=== PATIENT | female | born 1965 | race Caucasian/White ===

== ENCOUNTER 2016-09-19 19:01 | Emergency (ER) | payer OTHER ==
[~2016-09-19] VITALS: Ht 170.2 cm; Wt 88.1 kg
[2016-09-19 19:00] VITALS: TEMP 37; Ht 170.2 cm; Wt 88.1 kg
[~2016-09-19 19:01] MED LIST: ALBUAER2 INH; MXRAIN INH; SNG10 PO
[2016-09-19] MEDS ORDERED: ACETAMINOPHEN 500 MG TAB PO STA ×2 (19:20→19:28)
--- NOTE | 2016-09-19 19:57 | DIAGNOSTIC IMAGING REPORT ---
LUMBAR SPINE CT CT DOSE: 1698.42 mGy.cm HISTORY: Pain Low back pain, trauma TECHNIQUE: Multiaxial CT images of the lumbar spine were performed and reformatted in the sagittal and coronal plane without the use of contrast. COMPARISON: None. FINDINGS: No fractures. No subluxation. Paraspinal soft tissues are unremarkable. IMPRESSION: No fractures within the lumbar spine. Electronically signed by: Nazario Solis M.D. 09/19/2016 7:55 PM Dictated Date/Time: 09/19/2016 7:53 PM
--- NOTE | 2016-09-19 20:00 | DIAGNOSTIC IMAGING REPORT ---
CT pelvis PELVIS NO IV/ORAL CONT (CT) CLINICAL HISTORY: Low back pain, trauma TECHNIQUE: Transaxial acquisition with multi axial reformatted images COMPARISON STUDY: None FINDINGS: All major osseous structures are intact. No acute bony abnormality. No abnormal depressed reaction. 6. Iliac joints are symmetric. No acute process the hips. IMPRESSION: No acute process Electronically signed by: Nazario Solis M.D. 09/19/2016 7:57 PM Dictated Date/Time: 09/19/2016 7:55 PM
[2016-09-19] MEDS ORDERED: MONT1TAB3 PO (20:08)
[2016-09-19] MEDS ORDERED: CYCL10TA6 PO (20:08)
[2016-09-19] MEDS ORDERED: PRED10TA PO (20:08)
[2016-09-19] MEDS ORDERED: CLR10 PO (20:08)
[2016-09-19] MEDS ORDERED: WLLSR/150 PO (20:08)
[2016-09-19] MEDS ORDERED: OMEP20TA PO (20:08)
--- NOTE | 2016-09-19 20:34 | DIAGNOSTIC IMAGING REPORT ---
ORBIT RADIOGRAPHS 3 VIEWS HISTORY: Pre-MRI screening pre-MRI screening. COMPARISON: None. FINDINGS: There are no radiopaque foreign bodies identified within the orbits. IMPRESSION: No radiopaque foreign bodies identified within the orbits. Electronically signed by: Nazario Solis M.D. 09/19/2016 8:31 PM Dictated Date/Time: 09/19/2016 8:30 PM
[2016-09-19 21:19] VITALS: BP 121/71; PULSE 60; O2SAT 99
[2016-09-19] MEDS ORDERED: TRAMADOL HCL 50 MG TAB PO STA (21:20)
--- NOTE | 2016-09-19 21:21 | DIAGNOSTIC IMAGING REPORT ---
LUMBAR SPINE MRI HISTORY: MRI lumbar spine Lower extremity weakness, unable to stand TECHNIQUE: Multiplanar multisequence MRI of the lumbar spine was performed without the use of contrast. COMPARISON: None. FINDINGS: For the purpose of the report the L5-S1 disc space will be located on axial image 27 of 30. Mild disc desiccation L5-S1. Signal characteristics of the remainder of the vertebral bodies as well as intervertebral discs are unremarkable. L1-L2: No significant central canal or neural foraminal narrowing. L2-L3: No significant central canal or neural foraminal narrowing. L3-L4: No significant central canal or neural foraminal narrowing. L4-L5: No significant central canal or neural foraminal narrowing. L5-S1: Mild central disc herniation. Minimal impact anterior thecal sac. Neural foramina patent bilaterally. IMPRESSION: 1. Mild central disc herniation L5-S1. 2. No significant impact with thecal sac or associated neural elements. 3. Study is otherwise negative. Electronically signed by: Nazario Solis M.D. 09/19/2016 9:19 PM Dictated Date/Time: 09/19/2016 9:18 PM
[2016-09-19] MEDS ORDERED: TRAM-10 PO (21:57)
--- NOTE | 2016-09-19 22:02 | EMERGENCY ROOM VISIT NOTE ---
History First contact with patient: 19:06 Chief Complaint: BACK PAIN Stated Complaint: BACK PAIN History of Present Illness The patient is a 51 year old female who presents to the Emergency Room via ambulance with complaints of "back pain". The patient states that 2 weeks ago she felt a twinge in the lower spine, which was worsening, and was having difficulty with movement. She states that yesterday she was barely able to walk secondary to her legs feeling weak and extreme pain and lower back. She felt as though her legs could not support her. She denies any trauma at that time. She states that she was then seen by Dr. Ford, her family doctor who prescribed her Flexeril as well as a prednisone taper. She began this medication today. She then called a chiropractor, and was seen around 5:20 PM. She then returned home, and upon entrance into her house her large dog jumped up and pressed both of their positive the center of her low back. She states this caused her to hyperextend her back followed by quick flexion forward. She states that her legs gave out at that point. She notes that the left leg feels weaker than the right. She also has a slight burning sensation left gluteal region. She was unable to support her weight with her legs, and her called 911. She also notes that she was unable to sit because the pain in her legs were giving out. She has had a disc herniation in the past. She states that this was at the L5-S1 level during her previous labor. She states that she is very active, and walks daily several miles. At this time she denies any urinary symptoms, bowel or bladder incontinence, numbness or tingling in the genital region. Review of Systems A complete 10-point Review of Systems was discussed with the patient, with pertinent positives and negatives listed in the History of Present Illness. All remaining Review of Systems questions can be considered negative unless otherwise specified. Past Medical/Surgical History Lumbar disc herniation. Family History No pertinent family history at this time. Social History Smoking Status: Never Smoker Social History: Patient currently employed. Current/Historical Medications Scheduled Bupropion Hcl (Wellbutrin Sr), 150 MG PO BID Loratadine (Claritin), 10 MG PO DAILY Montelukast Sodium (Singulair), 10 MG PO QAM Omeprazole (Omeprazole), 20 MG PO DAILY Prednisone Tab (Prednisone), 10 MG PO UD Scheduled PRN Cyclobenzaprine Hcl (Flexeril), 10 MG PO TID PRN for Muscle Spasm Tramadol (Ultram), 50 MG PO Q6H PRN for Pain Allergies Coded Allergies: Sulfa Antibiotics (Verified Allergy, Intermediate, Skin reddens, 09/19/16) Physical Exam Vital Signs Date Time Temp Pulse Resp B/P Pulse Ox O2 Delivery O2 Flow Rate FiO2 09/19/16 21:19 60 16 121/71 99 Room Air 09/19/16 19:00 37.0 73 18 135/81 99 Room Air Physical Exam VITAL SIGNS - Vital signs and nursing notes were reviewed. GENERAL -51-year-old female appearing her stated age. Communicates well with provider and answers questions appropriately. SKIN - unremarkable HEAD - Normocephalic, Atraumatic. EYES - Without subconjunctival hemorrhage. Palpebral conjunctiva pink and moist with no injection. EARS - No deformities of external structures noted on gross examination bilaterally. NOSE - Midline and without cyanosis. No epistaxis or clear watery discharge noted. MOUTH/OROPHARYNX - Without perioral cyanosis. Tongue midline with equal elevation of palate bilaterally. No blood noted in the oropharynx. No tonsillar hypertrophy, erythema, or exudates noted. No dental fractures noted. NECK -no tenderness to palpation over the cervical spinous processes. No cervical paraspinal muscle tenderness noted. LUNGS - Chest wall symmetric without accessory muscle use, intercostals retractions, or central cyanosis. Normal vesicular breath sounds CTA B/L. No wheezes, rales, or rhonchi appreciated. CARDIAC - RRR with S1/S2. No murmur, rubs, or gallops appreciated. ABDOMEN - Abdominal contour and without pulsations or visible masses. BS normoactive all four quadrants.No tenderness, palpable masses, hepatosplenomegaly, or ascites noted. MUSCULOSKELETAL: There is pinpoint tenderness over the inferior lumbar and superior sacral spinous processes. No tenderness over the cervical or thoracic region. EXTREMITIES - No gross deformities noted of the extremities. No tenderness to palpation of the lower extremities. She is neurovascularly intact in the lower extremity's. There is appreciable decrease in strength in lower extremity upon extension of the legs. NEUROLOGIC - Cranial nerves II through XII grossly intact. Sensory intact to light touch throughout. PSYCH - Pt is very pleasant and interacts well with examiner. Medical Decision & Procedures ER Provider Diagnostic Interpretation: ORBIT RADIOGRAPHS 3 VIEWS HISTORY: Pre-MRI screening pre-MRI screening. COMPARISON: None. FINDINGS: There are no radiopaque foreign bodies identified within the orbits. IMPRESSION: No radiopaque foreign bodies identified within the orbits. Electronically signed by: Nazario Solis M.D. 09/19/2016 8:31 PM Dictated Date/Time: 09/19/2016 8:[address] DOSE: 1698.42 mGy.cm HISTORY: Pain Low back pain, trauma TECHNIQUE: Multiaxial CT images of the lumbar spine were performed and reformatted in the sagittal and coronal plane without the use of contrast. COMPARISON: None. FINDINGS: No fractures. No subluxation. Paraspinal soft tissues are unremarkable. IMPRESSION: No fractures within the lumbar spine. Electronically signed by: Nazario Solis M.D. 09/19/2016 7:55 PM Dictated Date/Time: 09/19/2016 7:53 PM LUMBAR SPINE MRI HISTORY: MRI lumbar spine Lower extremity weakness, unable to stand TECHNIQUE: Multiplanar multisequence MRI of the lumbar spine was performed without the use of contrast. COMPARISON: None. FINDINGS: For the purpose of the report the L5-S1 disc space will be located on axial image 27 of 30. Mild disc desiccation L5-S1. Signal characteristics of the remainder of the vertebral bodies as well as intervertebral discs are unremarkable. L1-L2: No significant central canal or neural foraminal narrowing. L2-L3: No significant central canal or neural foraminal narrowing. L3-L4: No significant central canal or neural foraminal narrowing. L4-L5: No significant central canal or neural foraminal narrowing. L5-S1: Mild central disc herniation. Minimal impact anterior thecal sac. Neural foramina patent bilaterally. IMPRESSION: 1. Mild central disc herniation L5-S1. 2. No significant impact with thecal sac or associated neural elements. 3. Study is otherwise negative. Electronically signed by: Nazario Solis M.D. 09/19/2016 9:19 PM Dictated Date/Time: 09/19/2016 9:[address] pelvis PELVIS NO IV/ORAL CONT (CT) CLINICAL HISTORY: Low back pain, trauma TECHNIQUE: Transaxial acquisition with multi axial reformatted images COMPARISON STUDY: None FINDINGS: All major osseous structures are intact. No acute bony abnormality. No abnormal depressed reaction. 6. Iliac joints are symmetric. No acute process the hips. IMPRESSION: No acute process Electronically signed by: Nazario Solis M.D. 09/19/2016 7:57 PM Dictated Date/Time: 09/19/2016 7:55 PM Medications Administered Medications (Trade) Dose Ordered Sig/[place] Route Start Time Stop Time Status Last Admin Dose Admin Acetaminophen (Tylenol Tab) 500 mg NOW STAT PO 09/19/16 19:20 09/19/16 19:23 DC 09/19/16 19:20 500 MG Acetaminophen (Tylenol Tab) 500 mg NOW STAT PO 09/19/16 19:28 09/19/16 19:29 DC 09/19/16 19:28 500 MG Tramadol HCl (Ultram Tab) 50 mg NOW STAT PO 09/19/16 21:20 09/19/16 21:21 DC 09/19/16 21:56 50 MG Medical Decision Patient was seen and evaluated as above. After obtaining a thorough history and physical examination patient was offered pain medication, and requested only oral Tylenol. She was given 500 mg, and requested 1 g total therefore another 500 mg was ordered. The patient presents with inability to stand, and lower weakness with pinpoint tenderness over the inferior lumbar and superior sacral region. Her dog also had jumped impressed upon these regions, which is the only evidence of trauma therefore believe that CT imaging is warranted. CT imaging was obtained of the lumbar and pelvis. This was negative for acute process. An MRI was then ordered as the patient was unable to stand secondary to leg weakness. She was unable to flex against my resistance with the legs, raising concern for potential neurologic compromise. MRI was obtained of the lumbar spine and reveals a mild central disc herniation at L5-S1. Results of these imaging studies are as above. Patient was educated upon these findings, I did request additional pain medication. She was given 50 mg of tramadol for her pain. This was after she requested something stronger for pain, and was also offered Toradol. I informed her that tramadol and Wellbutrin/bupropion increase risk of seizure activity especially she is already taking Flexeril. She stated that she has not taken any Wellbutrin for the past 2 days, therefore I agreed to provide her with tramadol. She was also given a home pack and a short-term prescription for this. She was educated about the extreme risk for seizure activity, but declined stronger pain medication. She indicated she would take Tylenol, and it does not appear that she will be taking the tramadol. The patient's case was discussed with Dr. Levin, who recommended the patient be referred to a aircraft engine specialist. The patient was offered admission, but noted that she would like to try and see how she did at home. I do believe this is appropriate, and indicated she may continue the prednisone as well. We again had an extensive discussion regarding the increased seizure risk of the medications. The patient was educated upon worrisome symptoms which to return, had questions prior to discharge, and was discharged home in good condition. The patient was ambulatory prior to discharge. I do not suspect cauda equina syndrome. In the evaluation and treatment of this patient following differential diagnoses were entertained: Disc herniation, cauda equina syndrome, H&P, renal calculi, UTI, pyelonephritis, fracture of the spine, among others. [place] [facility] Monitoring Program Search Results: patient reviewed within database, no issues identified Impression Primary Impression: Lumbar disc herniation Departure Information Dispostion Home / Self-Care Condition GOOD Prescriptions Tramadol (Ultram) 50 Mg Tab 50 MG PO Q6H Y for Pain, #12 TAB Prov: Chente Asencio PA-C 09/19/16 Referrals Nika Ford DO (PCP) Lorenzo Trammell DO Patient Instructions My [facility] Additional Instructions You have been treated in the Emergency Department for Back Pain. You have received pain medicine in the emergency department which impairs your ability to operate a vehicle. It is illegal for you to drive after receiving these medicines. You have been prescribed TRAMADOL to be used for pain control. This is a narcotic medication. You cannot drive or consume alcohol while on this medicine. This medicine should only be used for pain that cannot be controlled with [id number] pain medicines. As we discussed co administration of Wellbutrin, Flexeril and tramadol extremely increases your risk for seizures. It is recommended you do not take these together or in the same time frame. For pain control, you can use the following [id number] medicines (if >12 yo): - Regular strength (325mg/tab) Tylenol (acetaminophen) 2 tabs every 4-6 hours as needed. Do not exceed 12 tablets in a 24 hour period. Avoid taking more than 4 grams (4000 mg) of Tylenol per day. This includes any other sources of acetaminophen you may take on a regular basis. - Regular strength (200 mg/tab) Advil (ibuprofen) 1-2 tabs every 4-6 hours as needed. Do not exceed a dose of 3200 mg per day. If this is an acute injury, ice can be applied to the area of pain for the first 3 days to help decrease pain and inflammation. After the first 3 days, a heating pad can be used over the area for continued soothing relief. You should schedule a follow-up appointment in 2-3 days with your Primary Care Provider for further evaluation and treatment of your back pain. You've the provided number for a aircraft engine specialist to follow-up with. This is Dr. Trammell Return to the Emergency Department if your current symptoms worsen despite treatment course outlined above, or if you develop any of the following symptoms : intractable pain despite aforementioned treatment course, loss of control of your bowel or bladder, numbness or tingling in your groin, or development of a fever. Please return to the emergency department with any new/concerning symptoms. Thank you for your time.
== END 2016-09-19 22:29 | disposition home or self-care (01) ==
LOC: EDBD 19:01 → C.EDD 19:02
DX: M51.26 Other intervertebral disc displacement, lumbar region (principal); Z79.899 Other long term (current) drug therapy

== ENCOUNTER 2016-09-21 02:48 | Emergency (ER) | payer OTHER ==
[~2016-09-21] VITALS: Ht 170.2 cm; Wt 87.0 kg
[~2016-09-21 02:48] MED LIST changes: -ALBUAER2 INH; +CLR10 PO; +CYCL10TA6 PO; +MONT1TAB3 PO; -MXRAIN INH; +OMEP20TA PO; +PRED10TA PO; -SNG10 PO; +TRAM-10 PO; +WLLSR/150 PO
[2016-09-21 02:53] VITALS: TEMP 36.6; Ht 170.2 cm; Wt 87.0 kg
[2016-09-21] MEDS ORDERED: KETOROLAC TROMETHAMINE 30 MG/ML VIAL IV STA (03:24)
[2016-09-21] MEDS ORDERED: METHYLPREDNISOLONE 125 MG VIAL IV STA (03:24)
[2016-09-21] MEDS ORDERED: MoRPHine SULFATE 4 MG/ML 1 ML CARP\\VIAL IV STA (03:24)
[2016-09-21 04:50] VITALS: BP 130/88; PULSE 51; O2SAT 100
[2016-09-21] MEDS ORDERED: OXYCODONE IR HOME PACK PO ONE (05:00)
[2016-09-21] MEDS ORDERED: OXYC1TAB3 PO (05:03)
[2016-09-21] MEDS ORDERED: NAPR-1169 PO (05:06)
--- NOTE | 2016-09-21 05:06 | EMERGENCY ROOM VISIT NOTE ---
History First contact with patient: 03:01 Chief Complaint: BACK PAIN Stated Complaint: BACK PAIN History of Present Illness The patient is a 51 year old female who presents to the Emergency Department via EMS for evaluation of her low back pain. The patient reports that she has had pain for approximately 2 weeks. She had a decrease in her symptoms on Saturday after a visit to the chiropractor. She reports that upon returning home, her dog jumped on her causing her to jar her back resulting in worsening pain. She was seen in the emergency department on Saturday and had an MRI performed. She had been prescribed Flexeril and prednisone by her primary care provider. She was given Ultram in the emergency department as she reports that she does not wish to have anything stronger. 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 This evening, she has had worsening pain with particular focus to the LEFT-sided back with numbness down the LEFT leg. She reports pain with movement. She was unable to stand or move from the bed today which prompted visit to the emergency department. She received 4 mg morphine and 4 mg Zofran in route to the emergency department. She reports persistent pain rating her discomfort an 8/10. She denies any loss of control bowel/bladder saddle anesthesia. She reports no fevers or chills. She denies any new karina trauma, but does report that she was whitney again today by her dog, but had no pain shortly after. Review of Systems A complete 10-point Review of Systems was discussed with the patient, with pertinent positives and negatives listed in the History of Present Illness. All remaining Review of Systems questions can be considered negative unless otherwise specified. Social History Smoking Status: Never Smoker Smokeless Tobacco Use: No Drug Use: none Marital Status: Housing Status: lives with family Occupation Status: employed Current/Historical Medications Scheduled Bupropion Hcl (Wellbutrin Sr), 150 MG PO BID Loratadine (Claritin), 10 MG PO DAILY Montelukast Sodium (Singulair), 10 MG PO QAM Naproxen (Naprosyn), 500 MG PO BID Omeprazole (Omeprazole), 20 MG PO DAILY Prednisone Tab (Prednisone), 10 MG PO UD Scheduled PRN Cyclobenzaprine Hcl (Flexeril), 10 MG PO TID PRN for Muscle Spasm Oxycodone Ir (Roxicodone Ir), 1-2 TAB PO Q4H PRN for Pain Tramadol (Ultram), 50 MG PO Q6H PRN for Pain Allergies Coded Allergies: Sulfa Antibiotics (Verified Allergy, Intermediate, Skin reddens, 09/21/16) Physical Exam Vital Signs Date Time Temp Pulse Resp B/P Pulse Ox O2 Delivery O2 Flow Rate FiO2 09/21/16 04:50 51 15 130/88 100 Room Air 09/21/16 03:54 09/21/16 03:30 81 16 109/74 98 Room Air 09/21/16 02:53 36.6 67 22 166/85 98 Room Air Pain Rating (0-10): 8 Physical Exam VITAL SIGNS - Vital signs and nursing notes were reviewed. GENERAL - 51-year-old female appearing her stated age and in noticeable discomfort throughout the exam. NECK - FROM of the cervical spine. ABDOMEN - Abdominal contour flat without pulsations or visible masses. BS normoactive all four quadrants. No tenderness, palpable masses, hepatosplenomegaly, or ascites noted. MUSCULOSKELETAL - ROM of the lumbar spine region was limited secondary to patient discomfort. Pt was laying on the exam table. Pt made guarded movements when asked to change position. No step-off deformities were palpated down the thoracolumbar spines. Moderate Tenderness to Palpation and active paraspinal spasm experienced at the level of the LEFT sided lumbar paraspinal muscle distribution. No reproducible tenderness to palpation across the iliac spine. NEUROLOGIC - REFLEXES: +3/4 patellar reflexes B/L. SENSORY: Spinothalamic tract was found to be intact with ability to discriminate sharp versus dull sensation at the level of hip joint down do the great toe. No sensory defects of the dorsal column were appreciated utilizing light touch for evaluation. CEREBELLAR: Pt able to perform rapid alternating movements of the feet. EXTREMITIES - Range of Motion - No tremors, ticks, or fasciculations of the lower extremities noticed during inspection. Pt had +4/5 strength appreciated bilaterally in the lower extremities against examiner's resistance. VASCULAR - Capillary refill of the great toe was brisk. No mottling or blanching of the extremities present. +3/5 dorsalis pedis pulses palpated bilaterally. Medical Decision & Procedures Medications Administered Medications (Trade) Dose Ordered Sig/[place] Route Start Time Stop Time Status Last Admin Dose Admin Morphine Sulfate (MoRPHine SULFATE INJ) 4 mg NOW STAT IV 09/21/16 03:24 4/14/17 03:26 DC 09/21/16 03:32 4 MG Ketorolac Tromethamine (Toradol Inj) 30 mg NOW STAT IV 09/21/16 03:24 09/21/16 03:26 DC 09/21/16 03:31 30 MG Methylprednisolone Sodium Succinate (Solu-Medrol IV) 125 mg NOW STAT IV 09/21/16 03:24 09/21/16 03:26 DC 09/21/16 03:31 125 MG Oxycodone HCl (Roxicodone Immediate Rel 5MG Home Pack) 1 homepack UD ONCE PO 09/21/16 05:00 09/21/16 05:01 DC 09/21/16 05:02 1 HOMEPACK Cyclobenzaprine HCl (Flexeril Tab) 10 mg NOW STAT PO 09/21/16 05:27 09/21/16 05:28 DC 09/21/16 05:43 10 MG ED Course Patient was seen and evaluated by myself. Previous emergency department visit note was reviewed. IV lock had been established in route. I had a lengthy conversation with the patient regarding ongoing symptoms and management. She was treated with 4 mg morphine, 30 mg Toradol, 125 mg Solu-Medrol intravenously. Patient was reevaluated and reports feeling somewhat better at this time. She did have pain with attempted movement. She was provided one Flexeril. The patient declines any further pain medication or admission. Patient was discharged home with the intent for close follow-up with her primary care provider for continued management. Medical Decision Given the patient's presentation and exam findings, I did elect to perform the above-mentioned workup. The patient was seen in this facility on Saturday for the same symptoms of back pain. Her symptoms worsened today resulting in a lumbar LEFT-sided radiculopathy which was concerning to the patient. She had an MRI which was essentially unremarkable. She's had no new or recent trauma. I do not feel that imaging studies are necessary at this point. Her pain was adequately controlled the emergency setting and she reports that her numbness and referred pain did subside with IV doses of Toradol, morphine, and Solu- Medrol. The patient has a significant palpable muscular spasm which is likely contributing to her symptoms of sciatica. The patient will be placed on OxyIR in addition to her current regime of Flexeril and prednisone. She'll follow up closely with her primary care provider from today's visit. She will return for any changing or worsening symptoms. Patient discharged home in good condition. In the evaluation and treatment of this patient the following differential diagnoses were considered: Cauda equina syndrome, discitis, HNP, sciatica, epidural abscess, psoas abscess, musculoskeletal strain, lumbar fracture, lumbar dislocation, lumbar subluxation, spondylolisthesis, spondylosis, or compression fracture. Impression Primary Impression: Sciatica Additional Impression: Lumbar paraspinal muscle spasm Departure Information Dispostion Home / Self-Care Condition GOOD Prescriptions Naproxen (Naprosyn) 500 Mg Tab 500 MG PO BID for 10 Days, #20 TAB Prov: Maurice Rose PA-C 09/21/16 Oxycodone Ir (Roxicodone Ir) 5 Mg Tab 1-2 TAB PO Q4H Y for Pain, #16 TAB For Initial Treatment Prov: Maurice Rose PA-C 09/21/16 Referrals Nika Ford DO (PCP) Patient Instructions ED Sciatica, [facility] Additional Instructions You have been treated in the Emergency Department for Back Pain. You have received pain medicine in the emergency department which impairs your ability to operate a vehicle. It is illegal for you to drive after receiving these medicines. You have been prescribed OxyIR to be used for pain control. This is a narcotic medication. You cannot drive or consume alcohol while on this medicine. This medicine should only be used for pain that cannot be controlled with over-the- counter pain medicines. You have been prescribed Naprosyn (naproxen). This is an anti-inflammatory medication used to help decrease your symptoms and improve your pain. Please take this medication as prescribed. It is best to take this medication with food. Please to not take this antibiotic with other NSAIDS including: Ibuprofen , Advil, Motrin, Aspirin, Aleve, Celebrex, etc. For pain control, you can use the following [id number] medicines (if >12 yo): - Regular strength (325mg/tab) Tylenol (acetaminophen) 2 tabs every 4-6 hours as needed. Do not exceed 12 tablets in a 24 hour period. Avoid taking more than 4 grams (4000 mg) of Tylenol per day. This includes any other sources of acetaminophen you may take on a regular basis. - Regular strength (200 mg/tab) Advil (ibuprofen) 1-2 tabs every 4-6 hours as needed. Do not exceed a dose of 3200 mg per day. If this is an acute injury, ice can be applied to the area of pain for the first 3 days to help decrease pain and inflammation. After the first 3 days, a heating pad can be used over the area for continued soothing relief. You should schedule a follow-up appointment in 2-3 days with your Primary Care Provider for further evaluation and treatment of your back pain. Return to the Emergency Department if your current symptoms worsen despite treatment course outlined above, or if you develop any of the following symptoms : intractable pain despite aforementioned treatment course, loss of control of your bowel or bladder, numbness or tingling in your groin, or development of a fever. Problem Qualifiers Primary Impression: Sciatica Laterality: left Qualified Codes: M54.32 - Sciatica, left side
[2016-09-21] MEDS ORDERED: CYCLOBENZAPRINE HCL 10 MG TAB PO STA (05:27)
== END 2016-09-21 05:44 | disposition home or self-care (01) ==
LOC: EDBD 02:48 → C.EDA 02:51
DX: M54.32 Sciatica, left side (principal); M62.830 Muscle spasm of back; Z79.899 Other long term (current) drug therapy

== ENCOUNTER 2016-12-20 11:58 | Emergency (ER) | payer OTHER ==
[~2016-12-20] VITALS: Ht 170.2 cm; Wt 91.0 kg
[~2016-12-20 11:58] MED LIST changes: +OXYC1TAB3 PO
[2016-12-20 12:02] VITALS: TEMP 36.7; Ht 170.2 cm; Wt 91.0 kg
[2016-12-20 13:20] LABS: BASO % 0.5 %; BASO ABS # 0.03 K/uL (0-0.2); COMPLETE YES; EOS % 5.3 %; HEMATOCRIT 35.9 % (37-47); IG% 0.2 %; LYMPH ABS # 1.93 K/uL (1.2-3.4); MEAN CELL VOLUME 89.3 fL (80-100); MEAN CORPUSCULAR HEMOGLOBIN 30.8 pg (25-34); MEAN CORPUSCULAR HGB CONC 34.5 g/dl (32-36); MEAN PLATELET VOLUME 9.6 fL (7.4-10.4); MONO % 8.4 %; NEUT % 53.6 %; PLATELET COUNT 222 K/uL (130-400); RED BLOOD COUNT 4.02 M/uL (4.2-5.4); WHITE BLOOD COUNT 6.04 K/uL (4.8-10.8)
[2016-12-20 13:21] LABS: POINT OF CARE TROPONIN I < 0.030 ng/ml (0-0.045)
--- NOTE | 2016-12-20 13:26 | DIAGNOSTIC IMAGING REPORT ---
CHEST ONE VIEW PORTABLE CLINICAL HISTORY: CHEST PAIN pain COMPARISON STUDY: No previous studies for comparison. FINDINGS: The bones soft tissues and hemidiaphragms are normal. The cardiomediastinal silhouette is normal. The lungs are clear. The pulmonary vasculature is normal. IMPRESSION: Negative chest. Electronically signed by: Nazario Solis M.D. 12/20/2016 1:25 PM Dictated Date/Time: 12/20/2016 1:25 PM
[2016-12-20 13:41] LABS: BUN/CREATININE RATIO 19.8 (10-20); CALCIUM 9.3 mg/dl (8.5-10.1); CREATININE 0.83 mg/dl (0.60-1.20); POTASSIUM 3.3 mmol/L (3.5-5.1)
[2016-12-20 13:46] LABS: CKMB/CK RATIO 1.3 (0-3.0)
[2016-12-20] MEDS ORDERED: GABAPENTIN 100 MG CAP PO STA (13:50)
[2016-12-20] MEDS ORDERED: ASPIRIN 81 MG CHEW PO STA (13:50)
[2016-12-20] MEDS ORDERED: ACETAMINOPHEN 500 MG TAB PO STA (13:50)
[2016-12-20 14:23] VITALS: O2SAT 99
[2016-12-20 16:35] VITALS: BP 143/92; PULSE 100
--- NOTE | 2016-12-20 16:37 | EMERGENCY ROOM VISIT NOTE ---
History Report prepared by Dontae: Dustin Wallace Under the Supervision of: Dr. Lorenzo Madison M.D. First contact with patient: 12:33 Chief Complaint: CHEST PAIN Stated Complaint: CHEST PAIN Nursing Triage Summary: Started in middle of night, was having CP in a dream and then woke up and had crushing CP for about 15 mins. Has had a pressure ever since. SOB. Denies cardiac history. History of Present Illness The patient is a 51 year old female who presents to the Emergency Room with complaints of resolved chest pain that occurred at 0300. The patient reports that she was dreaming that she had chest pain last night. She states that she woke up in the middle of the night and was actually experiencing crushing chest pain that lasted for 15 minutes. The patient states that she still feels a pressure sensation in her chest. 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 The patient reports that at work she was advised to report to the ED by the staff. The patient states that in September, she had an injury due to an accident involving her do. She reports that she went to the ED where she found out she had a herniated disc , which erupted two days later causing a loss of feeling in her legs. She states that her L5S1 was affected and she had no push off for four months, but admits her numbness and weakness has resolved. The patient states she is currently dealing with sciatic S1 distribution. The patient states that she takes Gabapentin 200 mg four times a day, 1 naproxen a day, and Tylenol. She admits to a history of ankle surgery 7 years ago and a Caesarean section. The patient denies experiencing, heartburn, reflux, any recent travels, shortness of breath, pain upon breathing, LOC, headache, fevers, chills, diaphoresis, visual changes, neck pain, breathing difficulties, nausea, vomiting, abdominal pain, back pain, melena, hematochezia, urinary symptoms, numbness, weakness, lymphadenopathy, rash, or other complaints. Source of History: patient Onset: last night Position: chest Quality: pressure Timing: resolved Associated Symptoms: + SOB Review of Systems See HPI for pertinent positives and negatives. A total of ten systems were reviewed and were otherwise negative. Past Medical & Surgical Medical Problems: (1) Asthma Surgical Problems: (1) Previous section (2) S/P repair of ligament of ankle Family History Patient reports no known family medical history. Social History Smoking Status: Never Smoker Drug Use: none Marital Status: Housing Status: lives with family Occupation Status: employed Current/Historical Medications Scheduled Bupropion Hcl (Wellbutrin Sr), 150 MG PO BID Loratadine (Claritin), 10 MG PO DAILY Montelukast Sodium (Singulair), 10 MG PO QAM Omeprazole (Omeprazole), 20 MG PO DAILY Scheduled PRN Cyclobenzaprine Hcl (Flexeril), 10 MG PO TID PRN for Muscle Spasm Tramadol (Ultram), 50 MG PO Q6H PRN for Pain Allergies Coded Allergies: Sulfa Antibiotics (Verified Allergy, Intermediate, Skin reddens, 12/20/16) Physical Exam Vital Signs Date Time Temp Pulse Resp B/P (MAP) Pulse Ox O2 Delivery O2 Flow Rate FiO2 12/20/16 16:35 100 143/92 12/20/16 14:23 71 16 125/80 99 Room Air 12/20/16 13:16 61 12/20/16 12:55 Room Air 12/20/16 12:54 Room Air 12/20/16 12:04 100 Room Air 12/20/16 12:02 36.7 70 16 159/86 100 Room Air Physical Exam GENERAL: Awake, alert, well-appearing, in no distress HENT: Normocephalic, atraumatic. Oropharynx unremarkable. EYES: Normal conjunctiva. Sclera non-icteric. NECK: Supple. No nuchal rigidity. FROM. No JVD. RESPIRATORY: Clear to auscultation. CARDIAC: Regular rate, normal rhythm. Extremities warm and well perfused. Pulses equal. ABDOMEN: Soft, non-distended. No tenderness to palpation. No rebound or guarding. No masses. RECTAL: Deferred. MUSCULOSKELETAL: Chest examination reveals no tenderness. The back is symmetrical on inspection without obvious abnormality. There is no CVA tenderness to palpation. No joint edema. LOWER EXTREMITIES: Calves are equal size bilaterally and non-tender. No edema. No discoloration. NEURO: Normal sensorium. No sensory or motor deficits noted. SKIN: No rash or jaundice noted. Medical Decision & Procedures ER Provider Diagnostic Interpretation: X-ray: Per my interpretation, radiologist review. CHEST ONE VIEW PORTABLE CLINICAL HISTORY: CHEST PAIN pain COMPARISON STUDY: No previous studies for comparison. FINDINGS: The bones soft tissues and hemidiaphragms are normal. The cardiomediastinal silhouette is normal. The lungs are clear. The pulmonary vasculature is normal. IMPRESSION: Negative chest. Electronically signed by: Nazario Solis M.D. 12/20/2016 1:25 PM Dictated Date/Time: 12/20/2016 1:25 PM Laboratory Results 12/20/16 12:50 Red Blood Count 4.02, Mean Corpuscular Volume 89.3, Mean Corpuscular Hemoglobin 30.8, Mean Corpuscular Hemoglobin Concent 34.5, Mean Platelet Volume 9.6, Neutrophils (%) (Auto) 53.6, Lymphocytes (%) (Auto) 32.0, Monocytes (%) (Auto) 8.4, Eosinophils (%) (Auto) 5.3, Basophils (%) (Auto) 0.5, Neutrophils # (Auto) 3.24, Lymphocytes # (Auto) 1.93, Monocytes # (Auto) 0.51, Eosinophils # (Auto) 0.32, Basophils # (Auto) 0.03 12/20/16 12:50 Test 12/20/16 12:50 12/20/16 13:02 White Blood Count 6.04 K/uL (4.8-10.8) Red Blood Count 4.02 M/uL (4.2-5.4) Hemoglobin 12.4 g/dL (12.0-16.0) Hematocrit 35.9 % (37-47) Mean Corpuscular Volume 89.3 fL (80-100) Mean Corpuscular Hemoglobin 30.8 pg (25-34) Mean Corpuscular Hemoglobin Concent 34.5 g/dl (32-36) Platelet Count 222 K/uL (130-400) Mean Platelet Volume 9.6 fL (7.4-10.4) Neutrophils (%) (Auto) 53.6 % Lymphocytes (%) (Auto) 32.0 % Monocytes (%) (Auto) 8.4 % Eosinophils (%) (Auto) 5.3 % Basophils (%) (Auto) 0.5 % Neutrophils # (Auto) 3.24 K/uL (1.4-6.5) Lymphocytes # (Auto) 1.93 K/uL (1.2-3.4) Monocytes # (Auto) 0.51 K/uL (0.11-0.59) Eosinophils # (Auto) 0.32 K/uL (0-0.5) Basophils # (Auto) 0.03 K/uL (0-0.2) RDW Standard Deviation 44.7 fL (36.4-46.3) RDW Coefficient of Variation 13.5 % (11.5-14.5) Immature Granulocyte % (Auto) 0.2 % Immature Granulocyte # (Auto) 0.01 K/uL (0.00-0.02) Anion Gap 6.0 mmol/L (3-11) Est Creatinine Clear Calc Drug Dose 90.8 ml/min Estimated GFR () 93.3 Estimated GFR (Non- 80.5 BUN/Creatinine Ratio 19.8 (10-20) Calcium Level 9.3 mg/dl (8.5-10.1) Total Bilirubin 0.8 mg/dl (0.2-1) Direct Bilirubin 0.1 mg/dl (0-0.2) Aspartate Amino Transf (AST/SGOT) 25 U/L (15-37) Alanine Aminotransferase (ALT/SGPT) 25 U/L (12-78) Alkaline Phosphatase 68 U/L (45-117) Total Creatine Kinase 125 U/L (26-192) Creatine Kinase MB 1.6 ng/ml (0.5-3.6) Creatine Kinase MB Ratio 1.3 (0-3.0) Total Protein 7.5 gm/dl (6.4-8.2) Albumin 4.6 gm/dl (3.4-5.0) Lipase 113 U/L (73-393) Bedside D-Dimer 113 ng/mlFEU (0-450) Bedside Troponin I < 0.030 ng/ml (0-0.045) Laboratory results reviewed by me Medications Administered Medications (Trade) Dose Ordered Sig/[place] Route Start Time Stop Time Status Last Admin Dose Admin Gabapentin (Neurontin Cap) 200 mg NOW STAT PO 12/20/16 13:50 12/20/16 13:52 DC 12/20/16 14:26 200 MG Acetaminophen (Tylenol Tab) 1,000 mg NOW STAT PO 12/20/16 13:50 12/20/16 13:52 DC 12/20/16 14:10 1,000 MG Aspirin (Aspirin Chew) 324 mg NOW STAT PO 12/20/16 13:50 12/20/16 13:52 DC 12/20/16 14:10 324 MG ECG Indication: chest pain Rate (beats per minute): 61 Rhythm: normal sinus Findings: nonspecific-ST abn, no acute ischemic change ED Course 1249: The patient was evaluated in room C04. A complete history and physical exam was performed. 1346: I discussed the patient's case with Dr. Powell, [facility] Cardiology. The patient will undergo a stress test. 1350: Aspiring 324 mg PO, Tylenol Tab 1000 mg PO, Gabapentin 200 mg PO. 1356: I reevaluated the patient and she is resting comfortably. She wanted gabapentin and is feeling fine. Medical Decision Medication Reconciliation: I attest that I have personally reviewed the patient' s current medication list Patient was found to have a slightly elevated blood pressure due to circumstances. I do not believe that the patient requires hypertension monitoring. Triage Nursing notes reviewed. The patient's presentation and history were concerning for chest pain. Etiologies such as cardiac ischemia, aortic dissection, pulmonary embolism, pneumonia, pneumothorax, musculoskeletal, infections, gastrointestinal, as well as others were entertained. The patient was evaluated. Clinical she was doing well. ECG nonspecific ST abnormality but no acute changes. The patient had an unremarkable CBC, chemistry panel, LFTs, lipase, d-dimer, and troponin. A chest x-ray was negative. The patient requested her afternoon Neurontin and this was given. She is also given a dose of Tylenol and aspirin. I did discuss the case with Dr. Powell of cardiology. A stress test was ordered. The stress test was performed. I discussed case with Dr. Powell again. Consults Time Called: 1346 Consulting Physician: Dr. Powell, [facility] Cardiology Returned Call: 1346 I discussed the patient's case with Dr. Powell, [facility] Cardiology. The patient will undergo a stress test. Impression Primary Impression: Substernal precordial chest pain Scribe Attestation The scribe's documentation has been prepared under my direction and personally reviewed by me in its entirety. I confirm that the note above accurately reflects all work, treatment, procedures, and medical decision making performed by me. Departure Information Dispostion Home / Self-Care Referrals Nika Ford DO (PCP) Patient Instructions My [facility] Additional Instructions CHEST PAIN INSTRUCTIONS: Rest and drink plenty of fluids as tolerated. Continue current medications. Avoid strenuous activities and anything that worsens your pain. Resume normal activities once your symptoms resolve. Return to the ER immediately for worsening or persistent chest pain, abdominal pain, vomiting, fevers, chest pains, difficulty breathing, worsening of your condition, or as needed. Follow up with your primary physician in 2-3 days for a recheck of your current condition.
--- NOTE | 2016-12-20 16:50 | EXERCISE STRESS ECHO ---
*NOTICE TO RECEIVING LIBERTARIAN AGENCY This information is strictly Confidential and protected under [place] law. [place] law prohibits you from making any further disclosure of this information unless further disclosure is expressly permitted by the written consent of the person to whom it pertains or is authorized by law. A general authorization for the release of medical or other information is not sufficient for this purpose. Hospital accepts no responsibility if the information is made available to any other person, INCLUDING THE PATIENT. Interpretation Summary * Name: KAM DE LA TORRE Study Date: 12/20/2016 02:55 PM BP: 112/67 mmHg * Patient Location: [facility] HR: 60 * : 1965 (M/d/yyyy) Gender: Female Height: 67 in * Age: 51 yrs Ethnicity: CA Weight: 200 lb * Ordering Physician: Lorenzo Madison * Referring Physician: Self, Referred * Performed By: Mahi Guido RCS * * Reason For Study: CHEST PAIN * BSA: 2.0 m2 * -- Conclusions -- * STRESS STUDY: * Normal submaxiamal exercise stress echocardiogram. * No echocardiographic or ECG evidence of myocardial ischemia having achieved heart rate adequate for diagnostic purposes. * The patient achieved a peak heart rate of 127 bpm, which is equivalent to 76% of the age predected maximum heart rate. * The patient has a history of recently herniated lumber scal disc with resulant gait abnormality and therefore exercise was terminated due to gait instability. * RESTING STUDY: * There is no significant valvular heart disease. Procedure Details * ECHOEX, CPT #[id number] * ECHO COLOR FLOW, CPT #[id number] * ECHO DOPPLER, CPT #[id number] * TST, CPT #[id number] Left Ventricle * The left ventricle is normal in size. * There is no thrombus. * There is normal left ventricular wall thickness. * Left ventricular systolic function is normal. * Ejection Fraction = 55-60%. * The left ventricular wall motion is normal. Right Ventricle * The right ventricle is normal in size and function. Atria * The left atrial size is normal. * Right atrial size is normal. * No ASD detected; PFO is not assessed. Mitral Valve * The mitral valve is normal in structure and function. Tricuspid Valve * The tricuspid valve anatomy is normal. * Significant tricuspid regurgitation is absent. Aortic Valve * The aortic valve is normal in structure and function. Pulmonic Valve * The pulmonary valve is not well seen, but the Doppler examination is normal without significant regurgitation or stenosis. Great Vessels * The aortic root is normal size. Pericardium * There is no pericardial effusion. Stress Parameters * The baseline ECG displays normal sinus rhythm. * The stress ECG response was normal * No arrhythmia were noted with stress. * The stress portion of this study was personally supervised by the undersigned interpreting physician. * Rest heart rate was '60' BPM. * Rest blood pressure was '112/67' * Maximum heart rate achieved was 127 bpm. * Maximum heart rate was 76 % of maximum age-predicted heart rate. * Maximum blood pressure was '155/89' * Total exercise time was '03:42' * Maximum exercise MET level achieved was '5.40' METS * Maximum treadmill speed was '2.50' miles per hour. * Maximum treadmill elevation was '12.00'% grade. Left Ventricular Diastolic Function * The left ventricular diastolic function is normal. MMode 2D Measurements and Calculations IVSd 1.2 cm IVSs 1.6 cm LVIDd 4.8 cm LVIDs 3.1 cm LVPWd 1.1 cm LVPWs 1.2 cm IVS/LVPW 1.1 FS 34.3 % EDV(Teich) 106.3 ml ESV(Teich) 39.0 ml EF(Teich) 63.3 % EDV(cubed) 108.9 ml ESV(cubed) 30.8 ml EF(cubed) 71.7 % % IVS thick 30.3 % % LVPW thick 9.1 % LV mass(C)d 208.7 grams LV mass(C)dI 103.2 grams/m\S\2 LV mass(C)s 149.4 grams LV mass(C)sI 73.9 grams/m\S\2 SV(Teich) 67.3 ml SI(Teich) 33.3 ml/m\S\2 SV(cubed) 78.1 ml SI(cubed) 38.6 ml/m\S\2 Ao root diam 3.2 cm Ao root area 8.0 cm\S\2 LA dimension 3.4 cm LA/Ao 1.1 LVOT diam 2.0 cm LVOT area 3.0 cm\S\2 LVAd ap4 35.4 cm\S\2 LVLd ap4 8.0 cm EDV(MOD-sp4) 126.0 ml EDV(sp4-el) 133.1 ml LVAs ap4 21.1 cm\S\2 LVLs ap4 6.6 cm ESV(MOD-sp4) 57.5 ml ESV(sp4-el) 57.6 ml EF(MOD-sp4) 54.4 % EF(sp4-el) 56.8 % LVAd ap2 29.3 cm\S\2 LVLd ap2 7.4 cm EDV(MOD-sp2) 98.7 ml EDV(sp2-el) 98.0 ml LVAs ap2 18.0 cm\S\2 LVLs ap2 6.1 cm ESV(MOD-sp2) 45.8 ml ESV(sp2-el) 44.8 ml EF(MOD-sp2) 53.6 % EF(sp2-el) 54.3 % LVLd %diff -7.34 % EDV(MOD-bp) 115.6 ml LVLs %diff -6.97 % ESV(MOD-bp) 53.3 ml EF(MOD-bp) 53.9 % SV(MOD-sp4) 68.5 ml SI(MOD-sp4) 33.9 ml/m\S\2 SV(MOD-sp2) 52.9 ml SI(MOD-sp2) 26.2 ml/m\S\2 SV(MOD-bp) 62.3 ml SI(MOD-bp) 30.8 ml/m\S\2 SV(sp4-el) 75.6 ml SI(sp4-el) 37.4 ml/m\S\2 SV(sp2-el) 53.2 ml SI(sp2-el) 26.3 ml/m\S\2 Doppler Measurements and Calculations MV E max lauren 69.0 cm/sec MV A max lauren 50.7 cm/sec MV E/A 1.4 MV P1/2t max lauren 78.9 cm/sec MV P1/2t 85.4 msec MVA(P1/2t) 2.6 cm\S\2 MV dec slope 270.4 cm/sec\S\2 MV dec time 0.25 sec Ao V2 max 128.3 cm/sec Ao max PG 6.6 mmHg Ao max PG (full) 3.3 mmHg RALPH(V,A) 2.1 cm\S\2 RALPH(V,D) 2.1 cm\S\2 LV V1 max PG 3.3 mmHg LV V1 max 90.6 cm/sec PA V2 max 73.0 cm/sec PA max PG 2.1 mmHg PI max lauren 130.7 cm/sec PI max PG 6.8 mmHg PI dec slope 108.1 cm/sec\S\2 PI P1/2t 353.9 msec
== END 2016-12-20 16:50 | disposition home or self-care (01) ==
LOC: C.EDB 11:59 → C.EDC 16:50
DX: R07.2 Precordial pain (principal); J45.909 Unspecified asthma, uncomplicated; Z79.899 Other long term (current) drug therapy; Z98.890 Other specified postprocedural states; Z88.2 Allergy status to sulfonamides

== ENCOUNTER 2019-04-22 07:48 | Inpatient (IN) ==
[2019-04-22] MEDS ORDERED: MoRPHine SULFATE 10 MG/ML CARP/VIAL IV STA (08:12)
[2019-04-22] MEDS ORDERED: DEXAMETHASONE **PF** INJ 10 MG/ML VIAL IV ONE (08:12)
[2019-04-22] MEDS ORDERED: MoRPHine SULFATE 4 MG/ML 1 ML CARP\\VIAL ONE (08:23)
[2019-04-22] MEDS ORDERED: MoRPHine SULFATE 2 MG/ML CARP ONE (08:24)
--- NOTE | 2019-04-22 08:38 | Emergency Department Note ---
History of Present Illness General Chief complaint: Back Injury/Pain Time Seen by Provider: 04/22/19 07:53 History of Present Illness Maximum Pain Intensity: 8 54-year-old female who presents to the emergency department via ambulance for evaluation of lower back pain radiating into the right lower extremity with weakness. 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 The patient does have a history of an L5-S1 intervertebral disc bulge. She has had multiple MRIs in the past. The patient has not been evaluated by a spine surgeon. The patient has been on 2 courses of a prednisone taper over the past few weeks without relief. The patient reports that she usually has weakness in the left lower extremity, but now new weakness in the right. She denies any bladder or bowel incontinence. The patient denies any other recent illnesses or fevers. She denies any abdominal pain, urinary symptoms, diarrhea or constipation. The patient reports that she underwent an MRI at the [facility] on Saturday, but the MRI report has not yet been dictated. The patient was administered fentanyl 100 mcg IVP at home, and an additional fentanyl 50 mcg en route to our facility. The patient currently rates her discomfort a 6 out of 10. The patient reports that she has been on chronic opioid treatment. She reports that her latest injury 2 weeks ago was after attempting to stop her opioids "cold turkey", and fell. The patient has been evaluated in the past by pain management as well. Home Medications Home Medications Medication Instructions Recorded Confirmed Type bupropion HCl [Wellbutrin SR] 150 mg PO DAILY 04/22/19 04/22/19 History conjugated estrogens [Premarin] 0.625 mg VAGINAL 2XWK 04/22/19 04/22/19 History loratadine [Claritin] 10 mg PO DAILY 04/22/19 04/22/19 History montelukast [Singulair] 10 mg PO PM 04/22/19 04/22/19 History prednisone 40 mg PO DIRECTED 04/22/19 04/22/19 History trazodone 100 mg PO HS 04/22/19 04/22/19 History Allergies Allergy/AdvReac Type Severity Reaction Status Date / Time Sulfa (Sulfonamide Allergy Intermediate Skin Verified 12/20/16 17:06 Antibiotics) reddens sulfamethoxazole Allergy Redness of Unverified 04/22/19 08:08 [From Bactrim] Skin trimethoprim [From Bactrim] Allergy Redness of Unverified 04/22/19 08:08 Skin Past Med/Surg History Medical History Asthma Depression with anxiety HLD (hyperlipidemia) Lumbar degenerative disc disease Surgical History History of History of exploratory laparotomy Family History Father Alive and well Mother Alive and well Pre-diabetes Social History Preferred Language: Tongan Communication Ability: Effective Physicians And Surgeons Required: No Beliefs That Will Affect Care: None marital status: Current Living Situation: Spouse and Family current occupational status: employed 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 [employer] Other Information That Helps Us Care for You: No Feels Safe at Home: Yes Safety Concerns: Feels Safe At This Time Smoking Status: Never smoker Do You Dip or Chew Tobacco: No ; Second Hand Exposure: No ; Tobacco Cessation Education Requested by Patient: No Hx Alcohol Use: Yes Alcohol Intake Frequency: Rarely Hx Substance Use: Yes substance use type: marijuana Substance Use Type Other:: medical marijuana Last Used Substance Other:: last night Review of Systems 10 system review was performed and was negative except for pertinent positives and negatives as indicated in history of present illness Physical Exam Vital Signs Vital Signs - 24 hr 04/22/19 07:54 04/22/19 09:53 Temperature 36.6 C Temperature Source Oral Pulse Rate 57 L Pulse Rate [Finger] 58 L Respiratory Rate 18 20 Respiratory Effort / Characteristics Non-Labored Spontaneous Non-Labored Spontaneous Respiratory Depth Normal Respiratory Pattern Regular Blood Pressure 118/58 L Blood Pressure [Right Arm] 96/54 L Blood Pressure Mean 78 Blood Pressure Mean [Right Arm] 68 Blood Pressure Position Lying Pulse Oximetry 98 99 Oxygen Delivery Method Room Air Room Air Sepsis Recent Fever Within 48 Hours No Sepsis New/Unexplained Change in Mental Status No Sepsis Action Taken by Nursing No Action Required CONSTITUTIONAL: Healthy and well nourished. Alert and oriented X 3. Patient appears in moderate discomfort from back pain. HEENT: Normocephalic, atraumatic. Pupils equal, round and reactive. No obvious scleral icterus or conjunctival injection/pallor. NECK: Full active range of motion without discomfort. LYMPHATICS: No cervical chain adenopathy. RESPIRATORY: Clear to auscultation bilaterally with no wheezing, crackles, rhonchi or stridor. CARDIOVASCULAR: Regular rate and rhythm with no murmurs, rubs or gallops. GASTROINTESTINAL: Bowel sounds present in all quadrants. Soft and nontender to palpation. MUSCULOSKELETAL: Examination shows generalized tenderness to palpation through the lower lumbar spine, left worse than right. No obvious paraspinous spasm. Negative straight leg raise bilaterally. Pedal pulses are intact. INTEGUMENTARY: No rash or other significant dermatologic conditions noted. HEMATOLOGIC: No ecchymosis or petechiae. PSYCHIATRIC: Positive affect. NEUROLOGIC: Lower extremities are grossly sensory intact.. Course Course Patient history and physical exam were performed. Nurse's notes were reviewed. Vital signs were reviewed, showing a blood pressure 118/58, and pulse of 57. The patient appeared in moderate discomfort. IV access was established en route to our facility. Labs were ordered and drawn as well. I did have our Career Services Directorcartridge maker the [facility] radiology department, unfortunately there was no answer. The Career Services Director then contacted [facility] in [place], and spoke with a claim representative that would have there radiologist read the MRI. While awaiting progress on this issue, the patient reported returning pain. The nurse also called and reported that they attempted to get her up to walker to the bathroom and she could not do so. The patient was administered Dilaudid 0.5 mg IVP. Labs were reviewed and were grossly normal. After approximately a 2-hour wait with no MRI reports, the patient was still complaining of significant discomfort. She was was administered an additional dose of Dilaudid 0.5 mg IVP. I then further discussed the case with Dr. Vallejo, ED attending physician, who agrees with consulting the [facility] talist service. It is noted that we do not have a spine surgeon administrative receptionist this week. [facility] to the emergency department for further evaluation. Please see her dictation for further treatment and final disposition. Hopefully they will be able to get an MRI report of the lumbar spine without having to reorder further imaging at our facility. Administered Medications Acetaminophen (Tylenol) 650 mg PO Q4H PRN PRN Reason: pain/fever Stop: 05/22/19 12:53 Last Admin: 04/22/19 15:47 Dose: 650 mg Documented by: [id number] Hydromorphone HCl (Dilaudid) 1 mg IV Q3H PRN PRN Reason: Pain Stop: 05/06/19 13:26 Last Admin: 04/22/19 17:16 Dose: 1 mg Documented by: [id number] Admin: 04/22/19 13:54 Dose: 1 mg Documented by: [id number] Ketorolac Tromethamine (Toradol) 30 mg IV Q8H FABOI Stop: 04/24/19 16:59 Last Admin: 04/22/19 17:10 Dose: 30 mg Documented by: [id number] Oxycodone/Acetaminophen (Percocet 5mg/325mg) 1 tab PO Q4H PRN PRN Reason: Pain Stop: 05/06/19 12:53 Last Admin: 04/22/19 13:08 Dose: 1 tab Documented by: [id number] Discontinued Medications Albuterol (Ventolin Hfa) 2 puffs INH NOW STA Stop: 04/22/19 10:58 Last Admin: 04/22/19 11:30 Dose: 2 puffs Documented by: [id number] Dexamethasone Sodium Phosphate (Decadron Pf) 10 mg IV NOW ONE Stop: 04/22/19 08:13 Last Admin: 04/22/19 08:34 Dose: 10 mg Documented by: [id number] Hydromorphone HCl (Dilaudid) 0.5 mg IV NOW STA Stop: 04/22/19 09:05 Last Admin: 04/22/19 09:16 Dose: 0.5 mg Documented by: [id number] Hydromorphone HCl (Dilaudid) 0.5 mg IV NOW STA Stop: 04/22/19 12:02 Last Admin: 04/22/19 12:08 Dose: 0.5 mg Documented by: [id number] Ketorolac Tromethamine (Toradol) 30 mg IV NOW STA Stop: 04/22/19 10:12 Last Admin: 04/22/19 11:10 Dose: 30 mg Documented by: [id number] Morphine Sulfate (Morphine Sulfate) 6 mg IV NOW STA Stop: 04/22/19 08:13 Last Admin: 04/22/19 08:34 Dose: Not Given Documented by: [id number] Morphine Sulfate (Morphine Sulfate) Confirm Administered Dose 4 mg .ROUTE .STK- MED ONE Stop: 04/22/19 08:24 Last Admin: 04/22/19 08:34 Dose: 4 mg Documented by: [id number] Morphine Sulfate (Morphine Sulfate) Confirm Administered Dose 2 mg .ROUTE .STK- MED ONE Stop: 04/22/19 08:25 Last Admin: 04/22/19 08:34 Dose: 2 mg Documented by: [id number] Medical Decision Making Medical Records Attestation: I reviewed the patient's medical records. Home Medications Current Medication List: was personally reviewed by pa Laboratory Data Attestation: I reviewed the patient's lab results. Result diagrams: 04/22/19 08:31 Lab Results 04/22/19 04/22/19 Range/Units 08:31 08:31 WBC 5.18 (4.8-10.8) K/uL RBC 3.87 L (4.2-5.4) M/uL Hgb 11.9 L (12.0-16.0) g/dL Hct 35.3 L (37-47) % MCV 91.2 (80-100) fL MCH 30.7 (25-34) pg MCHC 33.7 (32-36) g/dL RDW Std Deviation 45.1 (36.4-46.3) fL RDW Coeff of Chun 13.6 (11.5-14.5) % Plt Count 165 (130-400) K/uL MPV 9.4 (7.4-10.4) fL Immature Gran % (Auto) 0.2 % Neut % (Auto) 51.5 % Lymph % (Auto) 37.5 % Anderson % (Auto) 8.7 % Eos % (Auto) 1.9 % Baso % (Auto) 0.2 % Immature Gran # (Auto) 0.01 (0.00-0.02) K/uL Neut # (Auto) 2.67 (1.4-6.5) K/uL Lymph # (Auto) 1.94 (1.2-3.4) K/uL Anderson # (Auto) 0.45 (0.11-0.59) K/uL Eos # (Auto) 0.10 (0-0.5) K/uL Baso # (Auto) 0.01 (0-0.2) K/uL ESR 2 (0-21) mm/hr Blood Pressure Blood Pressure Findings: Low blood pressure Blood Pressure Disposition: did not require urgent referral MDM Narrative I am concerned that the patient has a worsening disc bulge or possible herniation from her recent fall. The patient did undergo an MRI study on Saturday, but her MRI report has yet to be dictated by [facility] radiology. Hopefully the hospitalist service will be able to get a report without having to repeat her MRI at our facility. The patient currently denies any bladder/bowel incontinence, saddle anesthesias or footdrop to warrant emergent repeat MRI for possible cauda equina syndrome. Patient also denies any other recent illnesses to suggest infection. Impression & Plan Intractable neuropathic pain of lumbosacral origin Discharge Plan Visit Data *Final* Discharge Date/Time: 04/22/19 12:30 Chief Complaint: Back Injury/Pain ED Provider: Ronel Vallejo ED Midlevel Provider: Cruz Jerez Discharge Problem: Intractable neuropathic pain of lumbosacral origin Patient Disposition: Admitted As Inpatient Discharge Instructions Interventions: ED Discharge Assessment Last Done: 04/22/19 12:30
[2019-04-22 08:43] LABS: Basophils # (auto) 0.01 K/uL (0-0.2); Basophils % (auto) 0.2 %; Eosinophils % (auto) 1.9 %; Hematocrit (blood only) 35.3 % (37-47); Hemoglobin 11.9 g/dL (12.0-16.0); Immature Granulocytes # (auto) 0.01 K/uL (0.00-0.02); Immature Granulocytes % (auto) 0.2 %; Lymphocytes # (auto) 1.94 K/uL (1.2-3.4); Lymphocytes % (auto) 37.5 %; Mean Corpuscular Hemoglobin 30.7 pg (25-34); Mean Corpuscular Hgb Conc 33.7 g/dL (32-36); Mean Corpuscular Volume 91.2 fL (80-100); Mean Platelet Volume 9.4 fL (7.4-10.4); Monocytes # (auto) 0.45 K/uL (0.11-0.59); Monocytes % (auto) 8.7 %; Neutrophils # (auto) 2.67 K/uL (1.4-6.5); Neutrophils % (auto) 51.5 %; Platelet Count 165 K/uL (130-400); RDW Coefficient of Variation 13.6 % (11.5-14.5); RDW Standard Deviation 45.1 fL (36.4-46.3); Red Blood Count 3.87 M/uL (4.2-5.4); White Blood Count 5.18 K/uL (4.8-10.8)
[2019-04-22] MEDS ORDERED: HYDROmorphone INJ 0.5 MG/0.5 ML SYR IV STA ×2 (09:04→12:01)
[2019-04-22] MEDS ORDERED: KETOROLAC 30 MG/ML VIAL IV STA (10:11)
[2019-04-22] MEDS ORDERED: ALBUTEROL HFA 8 GM INHALER INH STA (10:57)
--- NOTE | 2019-04-22 11:38 | History & Physical Report ---
Date of Service April 22, 2019 Assessment & Plan (1) Lumbar back pain with radiculopathy affecting left lower extremity: (2) Weakness of left lower extremity: This is a 54-year-old female who has significant past medical history of mild intermittent asthma, anxiety,HLD, L5-S1 intervertebral disc disease who presents to [facility] ED secondary to intractable left lower back pain with radiation to left leg x2 weeks. MRI Lumbar Spine 04/18:interval progression of L5-S1 central/left subarticular disc extrusion, which effaces the left lateral recess and impinges the transversing left S1 nerve root In ED patient had CBC and ESR which was unrevealing. She had IV morphine 6 mg, 150 mcg of fentanyl, 10 mg dexamethasone, 0.5 mg Dilaudid and 30 mg of IV ketorolac. At rest her pain is approximately 5/10 and still with inability to walk secondary to pain. admit to med/surg Ortho Spine Dr. Valentin consulted - spoke with Dr. Valentin who agrees to see and evaluate patient - appreciate his input Conservative tx for now with Pain control - oxycodone/APAP 5 mg q4hr moderate pain, Morphine 4mg q4hr Severe Pain Continue Toradol 30mg IV q8hr for anti inflammatory relief Alternate heat/ice per comfort PT/OT consulted (3) Asthma: no acute exacerbation continue prn albuterol (4) Depression with anxiety: continue with trazodone and wellbutrin (5) DVT prophylaxis: SCD/TEDS for now evaluate daily for need for chemical prophylaxis Disposition: admit to med/Surg Follow up: PCP Dr. Ford upon discharge Patient was seen and examined in collaboration with Dr. Valero, please see addendum Starting 04/23/19 pt will be under the care of Dr. Mariee History of Present Illness Chief Complaint: Intractable left low back and L leg pain x 2 weeks. Primary Care Provider: Nika Ford, DO This is a 54-year-old female who has significant past medical history of mild intermittent asthma, anxiety,HLD, L5-S1 intervertebral disc disease who presents to [facility] ED secondary to intractable left lower back pain with radiation to left leg x2 weeks. In 2017 patient had an initial event after fall over dog which caused significant left leg and left low back pain for approximately 3 months. Patient states that secondary to L5-S1 disc effacement. It was treated conservatively with narcotic and physical therapy. She has residual left-sided weakness. She states after participating in therapy she feels she got her left leg back to 80% strength. She has been doing well until approximately 2 weeks ago when she bent over and went to stand back up she developed excruciating left-sided low back pain that radiated down left leg. Over the past 2 weeks pain has waxed and waned. She feels she has increased weakness to the left lower extremity. Denies numbness and tingling to left lower extremity or any right lower extremely symptoms. Over the past 3 to 4 days she has had significant worsening of pain and progression of weakness. She woke up at 4 AM this morning unable to get out of bed in excruciating pain; therefore, EMS was called. She denies any loss of bowel or bladder. She denies fever, chills, sweats, lightheadedness, dizziness, chest pain, shortness of breath, nausea, vomiting, abdominal pain. She has been taking [id number] Tylenol without significant relief as well as medical marijuana. She states back in 2016 she stopped narcotics cold turkey because it made her not feel well and she prefers to not take medications. Patient was seen and examined in outpatient setting 04/17/[address] Ford. She underwent MRI of the lumbar spine on 04/18 which revealed interval progression of L5-S1 central/left subarticular disc extrusion, which effaces the left lateral recess and impinges the transversing left S1 nerve root. She was to participate in PT today. In ED patient had CBC and ESR which was unrevealing. She had IV morphine 6 mg, 150 mcg of fentanyl, 10 mg dexamethasone, 0.5 mg Dilaudid and 30 mg of IV ketorolac. At rest her pain is approximately 5/10 and still with inability to walk secondary to pain. Allergies Allergy/AdvReac Type Severity Reaction Status Date / Time Sulfa (Sulfonamide Allergy Intermediate Skin Verified 12/20/16 17:06 Antibiotics) reddens sulfamethoxazole Allergy Redness of Unverified 04/22/19 08:08 [From Bactrim] Skin trimethoprim [From Bactrim] Allergy Redness of Unverified 04/22/19 08:08 Skin Home Medications Home Medications Medication Instructions Recorded Confirmed Type bupropion HCl [Wellbutrin SR] 150 mg PO DAILY 04/22/19 04/22/19 History conjugated estrogens [Premarin] 0.625 mg VAGINAL 2XWK 04/22/19 04/22/19 History loratadine [Claritin] 10 mg PO DAILY 04/22/19 04/22/19 History montelukast [Singulair] 10 mg PO PM 04/22/19 04/22/19 History prednisone 40 mg PO DIRECTED 04/22/19 04/22/19 History trazodone 100 mg PO HS 04/22/19 04/22/19 History Past Med/Surg History Medical History (Updated 04/22/19 @ 11:44 by Ana Villalta PA-C) Asthma Depression with anxiety HLD (hyperlipidemia) Lumbar degenerative disc disease Surgical History History of History of exploratory laparotomy Family History (Updated 04/22/19 @ 11:34 by Ana Villalta PA-C) Father Alive and well Mother Alive and well Pre-diabetes Social History (Updated 04/22/19 @ 11:34 by Ana Villalta PA-C) Preferred Language: Romanian Communication Ability: Effective Police Surgeon Required: No Beliefs That Will Affect Care: None marital status: Current Living Situation: Spouse and Family current occupational status: employed 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 [employer] Other Information That Helps Us Care for You: No Feels Safe at Home: Yes Safety Concerns: Feels Safe At This Time Smoking Status: Never smoker Do You Dip or Chew Tobacco: No ; Second Hand Exposure: No ; Tobacco Cessation Education Requested by Patient: No Hx Alcohol Use: Yes Alcohol Intake Frequency: Rarely Hx Substance Use: Yes substance use type: marijuana Substance Use Type Other:: medical marijuana Last Used Substance Other:: last night Review of Systems Review of Systems: All systems reviewed & are unremarkable except as noted in HPI & below Physical Exam Physical Exam: Constitutional: WD/WN, vitals as above, lying in L lateral decubitus position, +Distress due to pain, tearful, pleasant, conversing easily Head: Normocephalic, Atraumatic Eyes: PERRL, conjunctivae normal, anicteric sclerae ENMT: external ear and nose normal, oropharynx normal Neck: trachea midline, no thyromegaly normal visual inspection Respiratory: normal respiratory effort, lungs clear to auscultation, no wheeze, rales, rhonchi. Normal insp/exp effort, no accessory muscle use Cardiovascular: RRR, no murmur, no edema Vessels: no JVD or carotid bruit Chest: normal inspection of chest Abdomen: normal bowel sounds, soft, nontender, no hepatosplenomegaly Musculoskeletal: no cyanosis or clubbing, unable to assess strength/ROM to LLE due to significant pain - refer to Dr. Valero addendum Skin: no rashes, warm and dry normal turgor Neurologic: PERRL, EOMI, accommodation nl, no face palsy, no dysarthria CN's II-XI intact bilaterally and moves all extremities Psychiatric: A+Ox3, euthymic affect Lymphatic: no cervical or axillary lymphadenopathy : deferred Results & Data Vital Signs (Past 12 Hours) Vital Signs Temp Pulse Pulse Resp BP BP Pulse Ox 04/22/19 09:53 58 L 20 96/54 L 99 04/22/19 07:54 36.6 C 57 L 18 118/58 L 98 Laboratory Results Short CBC 04/22/19 Range/Units 08:31 WBC 5.18 (4.8-10.8) K/uL Hgb 11.9 L (12.0-16.0) g/dL Hct 35.3 L (37-47) % Plt Count 165 (130-400) K/uL Diagnostic Findings MRI Lumbar Spine 04/18/19: FINDINGS There are 5 [id number], lumbar-type vertebrae. Mild straightening of the normal lumbar lordosis. Lumbar vertebral bodies are maintained in height and signal intensity. Disc desiccation L1-L2 and L5-S1. Degenerative endplate changes with associated endplate edema at L5-S1. The conus medullaris terminates normally at L1. T12-L1: No significant spinal canal stenosis or neural foraminal narrowing. L1-L2: Mild diffuse disc bulge and facet arthropathy without significant spinal canal stenosis or neural foraminal narrowing. L2-L3: Mild diffuse disc bulge and facet arthropathy without significant spinal canal stenosis or neural foraminal narrowing L3-L4: Mild diffuse disc bulge and facet arthropathy without significant spinal canal stenosis or neural foraminal narrowing L4-L5: Mild diffuse disc bulge and facet arthropathy without significant spinal canal stenosis or neural foraminal narrowing L5-S1: Diffuse disc bulge with a superimposed central/left subarticular disc extrusion effaces the left lateral recess and impinges the traversing left S1 nerve root. Facet arthropathy contributes to mild spinal canal stenosis. No significant neural foraminal narrowing. Visualized prevertebral and paraspinal soft tissues are unremarkable. IMPRESSION IMPRESSION 1. Interval progression of L5-S1 central/left subarticular disc extrusion, which effaces the left lateral recess and impinges the traversing left S1 nerve root. Medications Administered Discontinued Medications Albuterol (Ventolin Hfa) 2 puffs INH NOW STA Stop: 04/22/19 10:58 Last Admin: 04/22/19 11:30 Dose: 2 puffs Documented by: [id number] Dexamethasone Sodium Phosphate (Decadron Pf) 10 mg IV NOW ONE Stop: 04/22/19 08:13 Last Admin: 04/22/19 08:34 Dose: 10 mg Documented by: [id number] Hydromorphone HCl (Dilaudid) 0.5 mg IV NOW STA Stop: 04/22/19 09:05 Last Admin: 04/22/19 09:16 Dose: 0.5 mg Documented by: [id number] Ketorolac Tromethamine (Toradol) 30 mg IV NOW STA Stop: 04/22/19 10:12 Last Admin: 04/22/19 11:10 Dose: 30 mg Documented by: [id number] Morphine Sulfate (Morphine Sulfate) 6 mg IV NOW STA Stop: 04/22/19 08:13 Last Admin: 04/22/19 08:34 Dose: Not Given Documented by: [id number] Morphine Sulfate (Morphine Sulfate) Confirm Administered Dose 4 mg .ROUTE .STK- MED ONE Stop: 04/22/19 08:24 Last Admin: 04/22/19 08:34 Dose: 4 mg Documented by: [id number] Morphine Sulfate (Morphine Sulfate) Confirm Administered Dose 2 mg .ROUTE .STK- MED ONE Stop: 04/22/19 08:25 Last Admin: 04/22/19 08:34 Dose: 2 mg Documented by: [id number] Code Status & VTE Plan Code Status Full Code VTE Prophylaxis Plan VTE Prophylaxis will be ordered: Yes Supervising Physician Co-Signing Physician Notes Attending addendum: The patient was seen and examined in medical floor She has been complaining of severe back pain with radiation to the left lower extremity which is worse since this morning She has had issues with her back and leg pain for a while and she finished 2 courses of prednisone as an outpatient without any improvement Recent MRI did show protrusion of the disc involving L5 and S1 distribution She denies any problem with urine and her bowel habit On examination Acute distress secondary to pain and cannot lie flat on the back Hemodynamically stable Chest-clear to auscultate bilaterally Heart-S1-S2 regular Abdomen-benign Extremities-no edema ROOM ATTENDANTS-alert, awake and oriented x3 Sensation is intact the left lower extremity Left lower extremity power is diminished and worse with the plantar dorsiflexion Admission labs and imaging studies reviewed Has HNP with significant compression of the S1 distribution on the left Spine surgery has been consulted Agree with assessment and plan as outlined above by Ana Villalta PA-C, Dr Shari Valero
[2019-04-22 12:32] LABS: Appearance Urine Clear (Clear); Bacteria Urine Automated 1+ (Negative); Bilirubin Urine Negative (Negative); Blood Urine Negative (Negative); Cast Urine Automated 0 /lpf (0-5); Color Urine Yellow; Epithelial Cell Urine Auto >30 /lpf (0-5); Glucose Urine UA Negative (Negative); Ketones Urine Negative (Negative); Leukocyte Esterase Urine 1+ (Negative); Nitrite Urine Negative (Negative); Protein Urine Negative (Negative); RBC Urine Automated 0-4 /hpf (0-4); Specific Gravity Urine 1.013 (1.000-1.030); Urobilinogen Urine Negative (Negative); pH Urine 6.5 (4.5-7.5)
[2019-04-22] MEDS ORDERED: MoRPHine SULFATE 4 MG/ML 1 ML CARP\\VIAL IV PRN (12:54)
[2019-04-22] MEDS ORDERED: POLYETHYLENE (MIRALAX) 17 GM PACK PO PRN (12:54)
[2019-04-22] MEDS ORDERED: ALUMINUM/MAGNESIUM SUSP 30 ML UDC PO PRN (12:54)
[2019-04-22] MEDS ORDERED: ONDANSETRON INJ 2 MG/ML 2 ML VIAL IV PRN (12:54)
[2019-04-22] MEDS ORDERED: ALBUTEROL HFA 8 GM INHALER INH PRN (12:54)
[2019-04-22] MEDS ORDERED: ZOLPIDEM TARTRATE 5 MG TAB PO PRN (12:54)
[2019-04-22] MEDS: OXYCODONE/ACETAMINOPHEN 5mg/325mg TAB PO PRN ×2 (13:08→19:02)
[2019-04-22] MEDS: HYDROmorphone INJ 1 MG/ML SYRINGE IV PRN ×4 (13:54→23:22)
[2019-04-22] MEDS: ACETAMINOPHEN 325 MG TAB PO PRN (15:47)
[2019-04-22] MEDS: KETOROLAC 30 MG/ML VIAL IV SCH (17:10)
[2019-04-22] MEDS: DEXAMETHASONE SOD PHOSPHATE 4 MG in SYRINGE 0 ML IV SCH (18:53)
[2019-04-22] MEDS: CYCLOBENZAPRINE HCL 10 MG TAB PO PRN (19:03)
[2019-04-22] MEDS: MONTELUKAST SODIUM 10 MG TABLET PO SCH (20:08)
[2019-04-22] MEDS: TRAZODONE HCL 100 MG TAB PO SCH (20:08)
[2019-04-23] MEDS: OXYCODONE/ACETAMINOPHEN 5mg/325mg TAB PO PRN ×5 (00:08→20:17)
[2019-04-23] MEDS: KETOROLAC 30 MG/ML VIAL IV SCH ×3 (00:10→17:55)
[2019-04-23] MEDS: DEXAMETHASONE SOD PHOSPHATE 4 MG in SYRINGE 0 ML IV SCH ×4 (00:10→17:55)
[2019-04-23] MEDS ORDERED: HYDROmorphone INJ 0.5 MG/0.5 ML SYR IV STA ×2 (01:20→20:44)
[2019-04-23] MEDS: HYDROmorphone INJ 1 MG/ML SYRINGE IV PRN ×7 (02:48→21:23)
[2019-04-23 06:21] LABS: Hematocrit (blood only) 38.2 % (37-47); Hemoglobin 12.7 g/dL (12.0-16.0); Mean Corpuscular Hemoglobin 30.4 pg (25-34); Mean Corpuscular Hgb Conc 33.2 g/dL (32-36); Mean Corpuscular Volume 91.4 fL (80-100); Platelet Count 214 K/uL (130-400); RDW Coefficient of Variation 13.5 % (11.5-14.5); RDW Standard Deviation 44.8 fL (36.4-46.3); Red Blood Count 4.18 M/uL (4.2-5.4); White Blood Count 11.61 K/uL (4.8-10.8)
[2019-04-23 07:07] LABS: BUN Creatinine Ratio 17.4 (10-20); Calcium 8.8 mg/dl (8.5-10.1); Creatinine Clr Calc Pharmacy 89.3 ml/min; Est GFR (African American) 95.5; Est GFR (Non-African American) 82.4; Potassium 4.2 mmol/L (3.5-5.1)
[2019-04-23] MEDS: CYCLOBENZAPRINE HCL 10 MG TAB PO PRN ×2 (07:22→15:56)
[2019-04-23] MEDS: LORATADINE 10 MG TAB PO SCH (07:23)
[2019-04-23] MEDS: BuPROPion SR 150 MG TABCR PO SCH (07:23)
--- NOTE | 2019-04-23 13:13 | Orthopedic Consultation ---
Date of Consultation April 23, 2019 Assessment & Plan (1) Herniation of nucleus pulposus of lumbar intervertebral disc with sciatica: MRI dated 04/18/2019 performed at [facility] is available for review does demonstrate large posterior lateral disc herniation at L5-S1 on the left with significant displacement of the traversing S1 nerve root. This is clearly concordant with her symptom complex. She is markedly uncomfortable with significant neural deficits and. Subsequently she would like to pursue surgical intervention. Would require a lumbar laminotomy partial discectomy at L5-S1 left. Risk benefits pros cons and alternatives were outlined in detail. Risks include but not limited to from anesthesia blindness stroke paralysis nerve damage blood loss current transfusion infection requiring reoperation passively marked improvement of her radiculopathy. At this time she will be made n.p.o. after midnight with plan for surgery tomorrow in the a.m. Present on Admission?: Yes History of Present Illness Reason for Consultation: Back and left leg pain with weakness Attending Physician: Thi Mariee MD History of Present Illness This is a 54-year-old female who presents with 2 weeks of severe left leg pain. She does have a history of chronic persistent back and sciatic issues stemming from the of her daughter. In 2017 she had marked exacerbation that did resolve with time and therapy. Unfortunately the past 2 weeks a return of symptoms after just modest activity has been unremitting in nature. She has tried several sessions of oral steroids and physical therapy without any relief. The pain is described involving left buttock posterior thigh extending into the calf and lateral aspect of her left foot. She notes marked decline in plantar flexion on the left compared to the right. She is unable to stand and ambulate secondary to severity of the pain. She does not note any loss of bowel bladder function. She currently requires IV Dilaudid which only lasts for a few minutes as far as pain relief. Allergies Allergy/AdvReac Type Severity Reaction Status Date / Time Sulfa (Sulfonamide Allergy Intermediate Skin Verified 12/20/16 17:06 Antibiotics) reddens sulfamethoxazole Allergy Redness of Unverified 04/22/19 08:08 [From Bactrim] Skin trimethoprim [From Bactrim] Allergy Redness of Unverified 04/22/19 08:08 Skin Home Medications Home Medications Medication Instructions Recorded Confirmed Type bupropion HCl [Wellbutrin SR] 150 mg PO DAILY 04/22/19 04/22/19 History conjugated estrogens [Premarin] 0.625 mg VAGINAL 2XWK 04/22/19 04/22/19 History loratadine [Claritin] 10 mg PO DAILY 04/22/19 04/22/19 History montelukast [Singulair] 10 mg PO PM 04/22/19 04/22/19 History prednisone 40 mg PO DIRECTED 04/22/19 04/22/19 History trazodone 100 mg PO HS 04/22/19 04/22/19 History Patient History Medical History Asthma Depression with anxiety HLD (hyperlipidemia) Lumbar degenerative disc disease Surgical History History of History of exploratory laparotomy Family History Father Alive and well Mother Alive and well Pre-diabetes Social History Preferred Language: Panamanian Communication Ability: Effective Die Developer Required: No Beliefs That Will Affect Care: None marital status: Current Living Situation: Spouse and Family current occupational status: employed 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 She is hesitant to move about the bed without reproducing increase in her left leg radiculopathy. She has sensory deficits to left leg compared to the right. She is marked weakness at the 3/5 left plantar flexion compared to 5/5 on the right. Dorsiflexion is symmetric and strong. She has significant tension signs with with even modest straight leg raise and Lasegue's maneuver. Results & Data Vital Signs (Past 12 Hours) Vital Signs Temp Pulse Resp BP Pulse Ox 04/23/19 07:09 36.9 C 54 L 16 95/61 L 99
--- NOTE | 2019-04-23 15:24 | Hospitalist Progress Note ---
Date of Service April 23, 2019 Assessment & Plan (1) Lumbar back pain with radiculopathy affecting left lower extremity: (2) Weakness of left lower extremity: This is a 54-year-old female who has significant past medical history of mild intermittent asthma, anxiety,HLD, L5-S1 intervertebral disc disease who presents to [facility] ED secondary to intractable left lower back pain with radiation to left leg x2 weeks. MRI Lumbar Spine 04/18:interval progression of L5-S1 central/left subarticular disc extrusion, which effaces the left lateral recess and impinges the transversing left S1 nerve root Ortho Spine Dr. Valentin consulted - appreciate input plan for lumber decompression surgery tomorrow at baseline pt is healthy and active , no active medical illness , no hx of CAD , no pulmonary disease, normal renal function pt has accepting risk to proceed for spinal decompression surgery in AM Pain control - oxycodone/APAP 5 mg q4hr moderate pain, Morphine 4mg q4hr Severe Pain Continue Toradol 30mg IV q8hr for anti inflammatory relief (3) Asthma: no acute exacerbation continue prn albuterol (4) Depression with anxiety: continue with trazodone and wellbutrin (5) DVT prophylaxis: SCD/TEDS scheduled for possible spinal decompression surgery in AM Follow up: PCP Dr. Ford upon discharge Subjective complains of severe back with numbness radiating down to her leg scheduled for lumber decompression surgery tomorrow no complain of chest pain , SOB , no cough no fever or chills Physical Exam Constitutional: WD/WN, vitals as above no acute distress Eyes: + anicteric sclerae ENMT: external ear and nose normal, oropharynx normal Neck: trachea midline, no thyromegaly Respiratory: normal respiratory effort, lungs clear to auscultation Cardiovascular: RRR, no murmur, no edema Gastrointestinal (Abdomen): normal bowel sounds, soft, nontender, no hepatosplenomegaly Musculoskeletal: Spine: + limited thoraco-lumbar ROM (due to severe back pain ) Skin: no rashes, warm and dry Neurologic: PERRL, EOMI, accommodation nl, no face palsy, no dysarthria Psychiatric: A+Ox3, euthymic affect Results & Data Vital Signs (Past 12 Hours) Vital Signs Temp Pulse Resp BP Pulse Ox 04/23/19 15:09 36.7 C 54 L 17 102/54 L 97 04/23/19 07:09 36.9 C 54 L 16 95/61 L 99
[2019-04-23] MEDS: PANTOprazole 40 MG TAB PO SCH (19:32)
[2019-04-23] MEDS: MONTELUKAST SODIUM 10 MG TABLET PO SCH (21:23)
[2019-04-23] MEDS: TRAZODONE HCL 100 MG TAB PO SCH (21:23)
[2019-04-24] MEDS: HYDROmorphone INJ 1 MG/ML SYRINGE IV PRN ×3 (00:28→13:50)
[2019-04-24] MEDS: DEXAMETHASONE SOD PHOSPHATE 4 MG in SYRINGE 0 ML IV SCH ×3 (00:30→12:30)
[2019-04-24] MEDS: OXYCODONE/ACETAMINOPHEN 5mg/325mg TAB PO PRN ×4 (01:41→23:27)
[2019-04-24] MEDS: KETOROLAC 30 MG/ML VIAL IV SCH ×2 (01:42→08:04)
[2019-04-24] MEDS: CYCLOBENZAPRINE HCL 10 MG TAB PO PRN (04:37)
[2019-04-24] MEDS: LORATADINE 10 MG TAB PO SCH (08:02)
[2019-04-24] MEDS: BuPROPion SR 150 MG TABCR PO SCH (08:02)
[2019-04-24] MEDS: PANTOprazole 40 MG TAB PO SCH (08:04)
[2019-04-24] MEDS ORDERED: PREMARIN VAG CRM 14 APPLN/30 GM TUBE PV SCH (09:00)
[2019-04-24] MEDS ORDERED: ALPRAZolam 0.25 MG TABLET PO PRN (11:09)
--- NOTE | 2019-04-24 12:19 | Hospitalist Progress Note ---
Date of Service April 24, 2019 Assessment & Plan (1) Lumbar back pain with radiculopathy affecting left lower extremity: (2) Weakness of left lower extremity: This is a 54-year-old female who has significant past medical history of mild intermittent asthma, anxiety,HLD, L5-S1 intervertebral disc disease who presents to [facility] ED secondary to intractable left lower back pain with radiation to left leg x2 weeks. MRI Lumbar Spine 04/18:interval progression of L5-S1 central/left subarticular disc extrusion, which effaces the left lateral recess and impinges the transversing left S1 nerve root Ortho Spine Dr. Valentin consulted - appreciate input scheduled for lumber decompression surgery today at baseline pt is healthy and active , no active medical illness , no hx of CAD , no pulmonary disease, normal renal function pt has accepting risk to proceed for spinal decompression surgery episodes of intermittent chest discomfort possible anxiety related , Physical exam for cardiopulmonary disaease , EKG,s , cardiac markers been negative Pain control - oxycodone/APAP 5 mg q4hr moderate pain, Morphine 4mg q4hr Severe Pain Continue Toradol 30mg IV q8hr for anti inflammatory relief INTERMITTENT CHEST PAIN : no evidence of ACS or pulmonary issues possible anxiety related , pt been On IV dexamethsone radiculopathy -which can exacerbate /precipitate symptom ordered for PRN Xanax as per pt's request (3) Asthma: no acute exacerbation continue prn albuterol (4) Depression with anxiety: continue with trazodone and wellbutrin ordered for PRN Xanax for anxiety attack (5) DVT prophylaxis: SCD/TEDS s Follow up: PCP Dr. Ford upon discharge Subjective pt complains of intermittent central chest heaviness , discomfort EKG shows normal sinus , no ischemic change , Troponin been negative vitals stable pt seen and examined at bedside feels miserable for back pain denies of any SOB , says she thinks getting anxiety episodes intermittently counselling provided pt is ordered low dose Xanax 0.25 mg TID PRN ( prefers Xanax over Ativan as it is short acting ) scheduled for lumber decompression surgery today Physical Exam Constitutional: WD/WN, vitals as above no acute distress Eyes: + anicteric sclerae ENMT: external ear and nose normal, oropharynx normal Neck: trachea midline, no thyromegaly Respiratory: normal respiratory effort, lungs clear to auscultation Cardiovascular: RRR, no murmur, no edema Gastrointestinal (Abdomen): normal bowel sounds, soft, nontender, no he patosplenomegaly Musculoskeletal: Spine: + limited thoraco-lumbar ROM (due to severe back pain ) Skin: no rashes, warm and dry Neurologic: PERRL, EOMI, accommodation nl, no face palsy, no dysarthria Psychiatric: Orientation: alert and oriented x 3 Affect: + anxious affect Results & Data Vital Signs (Past 12 Hours) Vital Signs Temp Pulse Resp BP Pulse Ox 04/24/19 08:47 36.8 C 56 L 18 116/69 97 04/24/19 07:34 37 C 58 L 18 106/64 99 04/24/19 04:30 36.7 C 44 L 14 105/62 93
[2019-04-24] MEDS ORDERED: NEOSTIGMINE METHYLSULFATE 1 MG/ML 10ML VIAL ONE (14:19)
[2019-04-24] MEDS ORDERED: LARYING-O-JET KIT (LTA) ONE (14:19)
[2019-04-24] MEDS ORDERED: GLYCOPYRROLATE 0.2 MG/ML VIAL ONE ×2 (14:19→16:15)
[2019-04-24] MEDS ORDERED: PROPOFOL IV EMULSION 10 MG/ML 20 ML VIAL IV ONE (14:19)
[2019-04-24] MEDS ORDERED: fentaNYL citrate 100 MCG/2 ML VIAL ONE (14:19)
[2019-04-24] MEDS ORDERED: MIDAZOLAM HCL 1 MG/ML 2ML VIAL ONE (14:19)
[2019-04-24] MEDS ORDERED: ROCURONIUM BROMIDE 10 MG/ML 5 ML VIAL ONE (14:19)
[2019-04-24] MEDS ORDERED: DEXAMETHASONE SOD INJ 4 MG/ML VIAL ONE ×2 (14:19→14:20)
[2019-04-24] MEDS ORDERED: ONDANSETRON INJ 2 MG/ML 2 ML VIAL ONE ×2 (14:19→16:15)
[2019-04-24] MEDS ORDERED: LIDOCAINE HCL 2% 2 ML VIAL/AMP(20MG/ML) INFIL ONE (14:19)
[2019-04-24] MEDS ORDERED: HYDROmorphone INJ 2 MG/ML SYR/VIAL ONE (14:20)
--- NOTE | 2019-04-24 14:29 | Anesthesiology Consultation ---
Date of Service April 24, 2019 Assessment & Plan (1) Encounter for pre-operative examination: Chart Review Chart Review: Acceptable Risk for Surgery and Patient NOT seen in Pre Admission Testing Consults Requested none History Surgery Operation Date: 04/24/19 13:45 Proposed Procedures p L5-S1 Left Lumbar Laminectomy - Manjeet Valentin DO Height/Weight Height: 5 ft 7 in Weight: 87.7 kg Allergies Allergy/AdvReac Type Severity Reaction Status Date / Time Sulfa (Sulfonamide Allergy Intermediate Skin Verified 12/20/16 17:06 Antibiotics) reddens sulfamethoxazole Allergy Redness of Unverified 04/22/19 08:08 [From Bactrim] Skin trimethoprim [From Bactrim] Allergy Redness of Unverified 04/22/19 08:08 Skin Medications Home Medications Medication Instructions Recorded Confirmed Last Taken bupropion HCl [Wellbutrin SR] 150 mg PO DAILY 04/22/19 04/22/19 Unknown conjugated estrogens [Premarin] 0.625 mg VAGINAL 2XWK 04/22/19 04/22/19 Unknown loratadine [Claritin] 10 mg PO DAILY 04/22/19 04/22/19 Unknown montelukast [Singulair] 10 mg PO PM 04/22/19 04/22/19 Unknown prednisone 40 mg PO DIRECTED 04/22/19 04/22/19 04/22/19 trazodone 100 mg PO HS 04/22/19 04/22/19 Unknown Active Medications Generic Name Dose Route Start Last Admin Trade Name Freq PRN Reason Stop Dose Admin Acetaminophen 650 mg 04/22/19 12:54 04/22/19 15:47 Tylenol PO 05/22/19 12:53 650 mg Q4H PRN Administration pain/fever Alprazolam 0.25 mg 04/24/19 11:09 04/24/19 12:29 Xanax PO 05/24/19 11:08 0.25 mg Q8H PRN Administration Anxiety Bupropion HCl 150 mg 04/23/19 09:00 04/24/19 08:02 Wellbutrin-Sr PO 05/23/19 08:59 Not Given DAILY FABIO Cyclobenzaprine HCl 10 mg 04/22/19 17:48 04/24/19 04:37 Flexeril PO 05/22/19 17:47 10 mg TID PRN Administration Muscle Spasm Estrogens Conjugated 1 appln 04/24/19 09:00 04/24/19 08:03 Premarin Vag PV 05/24/19 08:59 Not Given TuFr@0900 FABIO Hydromorphone HCl 1 mg 04/22/19 13:27 04/24/19 13:50 Dilaudid IV 05/06/19 13:26 1 mg Q3H PRN Administration Pain Dexamethasone Sodium Phosphate 1 mls @ 1 mls/min 04/22/19 18:00 04/24/19 12:30 4 mg/ Syringe IV 05/22/19 17:59 1 mls/min Q6H FABIO Administration Ketorolac Tromethamine 30 mg 04/22/19 17:00 04/24/19 08:04 Toradol IV 04/24/19 16:59 30 mg Q8H FABIO Administration Loratadine 10 mg 04/23/19 09:00 04/24/19 08:02 Claritin PO 05/23/19 08:59 Not Given DAILY FABIO Montelukast Sodium 10 mg 04/22/19 21:00 04/23/19 21:23 Singulair PO 05/22/19 20:59 10 mg PM FABIO Administration Oxycodone/Acetaminophen 1 tab 04/22/19 12:54 04/24/19 08:09 Percocet 5mg/325mg PO 05/06/19 12:53 1 tab Q4H PRN Administration Pain Pantoprazole Sodium 40 mg 04/23/19 17:45 04/24/19 08:04 Protonix PO 05/23/19 17:44 40 mg QAM FABIO Administration Trazodone HCl 100 mg 04/22/19 21:00 04/23/19 21:23 Desyrel PO 05/22/19 20:59 100 mg HS FABIO Administration NPO Date Last Intake of Fluids: 04/23/19 Time Last Intake of Fluids: 23:59 Date Last Intake of Solids: 04/23/19 Time Last Intake of Solids: 23:59 Past Medical History Medical History Asthma Depression with anxiety HLD (hyperlipidemia) Lumbar degenerative disc disease Past Family History Family History Father Alive and well Mother Alive and well Pre-diabetes Past Surgical History Surgical History History of History of exploratory laparotomy Social History Smoking Status: Never smoker Do You Dip or Chew Tobacco: No Hx Alcohol Use: Yes alcohol intake frequency: other Alcohol Intake Frequency Comment: 2 drinks a week, nothing recently Hx Substance Use: Yes substance use type: marijuana Substance Use Type Other:: medical marijuana Last Used Substance Other:: last night Physical Exam Vital Signs Last Vital Signs Temp 36.8 C 04/24/19 08:47 Pulse 56 L 04/24/19 08:47 Resp 18 04/24/19 08:47 BP 116/69 04/24/19 08:47 Pulse Ox 97 04/24/19 08:47 Testing Laboratory Results 04/23/19 05:42 04/23/19 05:42 Urine Color Yellow 04/22/19 12:21 Urine Appearance Clear (Clear) 04/22/19 12:21 Urine pH 6.5 (4.5-7.5) 04/22/19 12:21 Ur Specific [place] 1.013 (1.000-1.030) 04/22/19 12:21 Urine Protein Negative (Negative) 04/22/19 12:21 Urine Glucose (UA) Negative (Negative) 04/22/19 12:21 Urine Ketones Negative (Negative) 04/22/19 12:21 Urine Nitrite Negative (Negative) 04/22/19 12:21 Ur Leukocyte Esterase 1+ (Negative) H 04/22/19 12:21 Urine WBC (Auto) 10-30 /hpf (0-5) H 04/22/19 12:21 Urine RBC (Auto) 0-4 /hpf (0-4) 04/22/19 12:21 U Hyaline Cast (Auto) 0 /lpf (0-5) 04/22/19 12:21 U Epithel Cells (Auto) >30 /lpf (0-5) H 04/22/19 12:21 Urine Bacteria (Auto) 1+ (Negative) H 04/22/19 12:21 04/22/19 12:21 Urine Culture - Final Urine,Clean Catch More than three types of organisms present, all moderate counts mixed probable skin reema. No further identifications or sensitivities to follow. Electrocardiogram Date: 04/23/19 Findings: + SB @ (49) Rightward axis, Nonspecific T wave abnormality, When compared with ECG of 23-APR-2019 09:19, Nonspecific T wave abnormality now evident in Anterior leads
--- NOTE | 2019-04-24 14:47 | History & Physical Bridge Note ---
Date of Service April 24, 2019 History & Physical Bridge Note I have examined the patient, reviewed the History & Physical and in the interval since the performance of the History & Physical I have noted the following changes of clinical significance: no changes noted
[2019-04-24] MEDS ORDERED: BACITRACIN INJ 50,000 UNIT VIAL ONE (14:49)
[2019-04-24] MEDS ORDERED: HYDROmorphone INJ 1 MG/ML SYRINGE IV PRN (15:04)
[2019-04-24] MEDS ORDERED: ONDANSETRON INJ 2 MG/ML 2 ML VIAL IV PRN (15:04)
[2019-04-24] MEDS ORDERED: ATROPINE SULFATE 0.1 MG/ML 10ML SYR IV PRN (15:04)
[2019-04-24] MEDS ORDERED: fentaNYL citrate 100 MCG/2 ML VIAL IV PRN (15:04)
[2019-04-24] MEDS ORDERED: ePHEDrine sulfate 50 MG/ML AMP IV PRN (15:04)
[2019-04-24] MEDS ORDERED: CEFAZOLIN 2000MG 2,000 MG/15 ML SYR IV ONE (15:18)
[2019-04-24] MEDS ORDERED: CEFAZOLIN 2,000 MG/15 ML IV PUSH IV ONE (15:18)
[2019-04-24] MEDS: BUPIVACAINE/EPINEPHRINE 0.25% 1:200,000 30 ML VIAL ONE ×2 (15:50→18:36)
[2019-04-24] MEDS ORDERED: FLOSEAL HEMOSTATIC MATRIX 10ML TOP ONE (16:08)
[2019-04-24] MEDS ORDERED: ePHEDrine sulfate 50 MG/ML SYR ONE (16:15)
[2019-04-24] MEDS ORDERED: PHENYLEPHRINE 100MCG/ML 5ML SYR ONE (16:15)
--- NOTE | 2019-04-24 16:26 | Operative Report ---
Post Operative Report Pre & Post Diagnosis Operation Date: 04/24/19 13:45 Pre-Op Diagnosis: Herniation of nucleus pulposus of lumbar intervertebral disc with sciatica L5-S1 Post-Op Diagnosis: Herniation of nucleus pulposus of lumbar intervertebral disc with sciatica L5-S1 I identified the patient and participated in the time-out.: Yes Procedure Operation Date: 04/24/19 13:45 Actual Procedures Lumbar laminotomy L5-S1 the left with removal of herniated free fragment Surgeon Manjeet Valentin DO Bill Of Materials Clerk Yfn Anderson Estimated Blood Loss 10 Findings Consistent with Post-Op Diagnosis Specimens L5-S1 disc herniation Indications This is a 54-year-old female who presents with severe sciatica diagnosis of disc herniation L5-S1 left. She is having significant neuro deficits elected to undergo the above-mentioned procedure. Description of Procedure Patient was met with identified and informed consent obtained. Patient was then taken to the operative suite underwent intubation placed in a prone position on the Da table on top of the Nahid frame. All bony prominences well-padded eyes inspected to ensure no external pressure placed upon but this point the lumbar spine was prepped and draped in normal sterile fashion. With the assistance of fluoroscopy identified the L5-S1 disc space and a midline incision was created overlying this region. Sharp dissection with the assistance of Bovie cautery was performed down to and exposing the interlaminar space at L5-S1 left. Self-retaining retractors placed. Then performed a small laminotomy removing the lateral portion of the ligamentum flavum and a portion of the medial facet to expose a severely compressed traversing S1 nerve root. It was able to mobilize this medially and a large free fragment disc material was adhered directly to the root. It was removed without difficulty. The small fragments of cartilaginous endplate material were also noted and removed. The area was explored several times to ensure all loose fragments addressed. Was then copiously irrigated and closed with 1 Vicryl fascia 2-0 Vicryl subcutaneous and 4 Monocryl for final skin closure. Steri-Strip sterile dressings placed. Patient awakened taken to PACU stable condition. Please note Yfn Anderson was present all the entire procedure involved the patient positioning complex portions of the surgery and final skin closure. I attest to the content of the Intraoperative Record and any orders documented therein. Any exceptions are noted below.
--- NOTE | 2019-04-24 16:35 | Fluoroscopy Report ---
FL spine 1V any level CLINICAL HISTORY: L5-S1 LUMBAR laminectomy COMPARISON STUDY: Lumbar spine 09/19/2016. FLUOROSCOPY TIME: 7 seconds. FINDINGS: Single fluoroscopic spot image of the lower lumbar spine was submitted. There are surgical instruments posterior to the L5-S1 disc space. IMPRESSION: Fluoroscopy provided for L5-S1 laminectomy. Electronically signed by: Rojelio Nelson M.D. 04/24/2019 4:34 PM
--- NOTE | 2019-04-24 17:10 | Anesthesiology Progress Note ---
Date of Service April 24, 2019 Anesthesia Post Procedure Vital Signs Vital Signs: Temp Pulse Pulse Resp BP BP Pulse Ox 04/24/19 17:00 63 16 126/68 100 04/24/19 16:50 59 L 16 128/69 100 04/24/19 16:40 36.5 C 76 16 134/71 99 04/24/19 14:55 36.9 C 57 L 18 119/69 99 04/24/19 08:47 36.8 C 56 L 18 116/69 97 04/24/19 07:34 37 C 58 L 18 106/64 99 04/24/19 04:30 36.7 C 44 L 14 105/62 93 04/23/19 23:18 36.9 C 58 L 16 108/64 94 Pain Intensity Back: Pain Intensity: 10 Transfer of Care Handoff Completed per policy Notes Mental Status: alert / awake / arousable and participated in evaluation Patient Amnestic to Procedure: Yes Nausea / Vomiting: adequately controlled Pain: adequately controlled Airway Patency, RR, SpO2: stable & adequate BP & HR: stable & adequate Hydration State: stable & adequate Anesthetic Complications: no major complications apparent and Pt Satisfied with anesthetic care
[2019-04-24] MEDS ORDERED: DO NOT ADMINISTER PNEUMOCOCCAL VACCINE PRN (17:29)
[2019-04-24] MEDS ORDERED: DO NOT ADMINISTER FLU VACCINE PRN (17:29)
[2019-04-24] MEDS ORDERED: DOCUSATE SODIUM/SENNA 50/8.6MG TAB PO STA (20:06)
[2019-04-24] MEDS: MONTELUKAST SODIUM 10 MG TABLET PO SCH (20:52)
[2019-04-24] MEDS: SODIUM CHLORIDE 0.9% 1000ML 1,000 ML IV SCH (20:53)
[2019-04-24] MEDS: CEFAZOLIN 2000MG 2,000 MG/15 ML SYR IV SCH (22:29)
[2019-04-25] MEDS: CYCLOBENZAPRINE HCL 10 MG TAB PO PRN (00:36)
[2019-04-25] MEDS: TRAZODONE HCL 100 MG TAB PO SCH (00:54)
[2019-04-25] MEDS: OXYCODONE/ACETAMINOPHEN 5mg/325mg TAB PO PRN ×5 (04:12→22:20)
[2019-04-25] MEDS: CEFAZOLIN 2000MG 2,000 MG/15 ML SYR IV SCH ×2 (06:13→13:25)
[2019-04-25] MEDS: BuPROPion SR 150 MG TABCR PO SCH (07:50)
[2019-04-25] MEDS: SODIUM CHLORIDE 0.9% 1000ML 1,000 ML IV SCH (07:50)
[2019-04-25] MEDS: PANTOprazole 40 MG TAB PO SCH (07:50)
[2019-04-25] MEDS: LORATADINE 10 MG TAB PO SCH (07:50)
--- NOTE | 2019-04-25 08:28 | Orthopedic Progress Note ---
Date of Service April 25, 2019 Assessment & Plan (1) Herniation of nucleus pulposus of lumbar intervertebral disc with sciatica: This time initiate physical therapy assess her progress hopefully she will be able to discharge home tomorrow. Present on Admission?: Yes Subjective Patient's leg radicular pain is has improved dramatically. She still struggling with significant numbness and weakness to left lower extremity. Physical Exam Physical Exam: On exam she does appear much more comfortable. She has marked improved plantar flexion to the left lower extremity compared to the preoperative state. Still quite numb and S1 pattern. Results & Data Vital Signs (Past 12 Hours) Vital Signs Temp Pulse Pulse Resp BP BP Pulse Ox 04/25/19 07:14 37.9 C H 50 L 16 115/74 98 04/25/19 04:20 58 L 04/25/19 04:00 36.5 C 45 L 16 106/65 95 04/24/19 23:15 36.8 C 58 L 16 119/72 98 04/24/19 20:30 36.8 C 64 16 109/66 96
[2019-04-25] MEDS: MAGNESIUM HYDROXIDE SUSP 30 ML UDC PO PRN (11:03)
--- NOTE | 2019-04-25 16:02 | Hospitalist Progress Note ---
Date of Service April 25, 2019 Assessment & Plan (1) Lumbar back pain with radiculopathy affecting left lower extremity: (2) Weakness of left lower extremity: This is a 54-year-old female who has significant past medical history of mild intermittent asthma, anxiety,HLD, L5-S1 intervertebral disc disease who presents to [facility] ED secondary to intractable left lower back pain with radiation to left leg x2 weeks. MRI Lumbar Spine 04/18:interval progression of L5-S1 central/left subarticular disc extrusion, which effaces the left lateral recess and impinges the transversing left S1 nerve root Ortho Spine Dr. Valentin consulted - appreciate input s/p Lumber decompression surgery POD # 1 recovering well post op cont pain control bowel regimen ordered to prevent constipation INTERMITTENT CHEST PAIN : no further episode no evidence of ACS or pulmonary issues possible anxiety related , pt been On IV dexamethsone radiculopathy -which can exacerbate /precipitate symptom ordered for PRN Xanax as per pt's request (3) Asthma: no acute exacerbation continue prn albuterol (4) Depression with anxiety: continue with trazodone and wellbutrin ordered for PRN Xanax for anxiety attack (5) DVT prophylaxis: SCD/TEDS Follow up: possible discharge home tomorrow will need post op follow up with [facility] Dr Valentin PCP Dr. Ford upon discharge Subjective s/p lumber decompression surgery back pain and radiation pain to left lower ext improved still has persistent numbness and weakness of left lower ext no fever or chills no SOB or cough no abdominal pain or nausea/vomiting Physical Exam Constitutional: WD/WN, vitals as above no acute distress Eyes: + anicteric sclerae ENMT: external ear and nose normal, oropharynx normal Neck: trachea midline, no thyromegaly Respiratory: normal respiratory effort, lungs clear to auscultation Cardiovascular: RRR, no murmur, no edema Gastrointestinal (Abdomen): normal bowel sounds, soft, nontender, no hepatosplenomegaly Skin: no rashes, warm and dry Neurologic: PERRL, EOMI, accommodation nl, no face palsy, no dysarthria Psychiatric: A+Ox3, euthymic affect Orientation: alert and oriented x 3 Affect: + anxious affect Results & Data Vital Signs (Past 12 Hours) Vital Signs Temp Pulse Pulse Resp BP BP Pulse Ox 04/25/19 15:26 97 04/25/19 15:13 36.8 C 59 L 18 119/72 95 04/25/19 12:23 36.4 C L 52 L 18 109/70 98 04/25/19 07:14 37.9 C H 50 L 16 115/74 98 04/25/19 04:20 58 L
[2019-04-25] MEDS: MONTELUKAST SODIUM 10 MG TABLET PO SCH (20:57)
[2019-04-25] MEDS: BISACODYL 10 MG SUPP PR PRN (21:36)
[2019-04-25] MEDS ORDERED: POLYETHYLENE (MIRALAX) 17 GM PACK PO PRN (22:01)
[2019-04-25] MEDS: ACETAMINOPHEN 325 MG TAB PO PRN (22:20)
[2019-04-26] MEDS: TRAZODONE HCL 100 MG TAB PO SCH (01:55)
[2019-04-26] MEDS: OXYCODONE/ACETAMINOPHEN 5mg/325mg TAB PO PRN ×3 (01:55→14:44)
[2019-04-26] MEDS: BISACODYL 10 MG SUPP PR PRN (07:31)
[2019-04-26] MEDS: LORATADINE 10 MG TAB PO SCH (08:43)
[2019-04-26] MEDS: MAGNESIUM HYDROXIDE SUSP 30 ML UDC PO PRN ×2 (08:43→21:32)
[2019-04-26] MEDS: PANTOprazole 40 MG TAB PO SCH (08:43)
[2019-04-26] MEDS: BuPROPion SR 150 MG TABCR PO SCH (08:43)
[2019-04-26] MEDS: ACETAMINOPHEN 325 MG TAB PO PRN (08:48)
--- NOTE | 2019-04-26 08:52 | Orthopedic Progress Note ---
Date of Service April 26, 2019 Assessment & Plan (1) Herniation of nucleus pulposus of lumbar intervertebral disc with sciatica: At this point patient is recovering. She is progressing nicely however she is not yet had a bowel movement. I am concerned that if we discharge her today she may develop an ileus. I like to keep her today and likely discharge her to home tomorrow. I discussed the patient she agrees. We will see how she is doing tomorrow morning and if all is going well we will discharge her. Subjective Patient was seen bedside in room 379 postop day #2. Overall she is doing well in terms of pain control. She is not having the searing pain going down her leg that she had prior to surgery but she still has some persistent numbness. She is concerned that she has not yet had a full bowel movement and feels that she is a bit distended. Otherwise her pain is well controlled. She denies any other numbness, tingling, or paresthesias. Physical Exam Physical Exam: On exam she is alert and oriented. Her lower extremity motor exam reveals no focal atrophy. Her dressing is clean dry and intact. Abdomen is soft nontender calves are supple nontender. Results & Data Vital Signs (Past 12 Hours) Vital Signs Temp Pulse Pulse Resp BP Pulse Ox 04/26/19 07:11 36.5 C 56 L 18 108/69 99 04/25/19 23:19 36.7 C 60 16 111/69 96
[2019-04-26] MEDS ORDERED: BISACODYL 5 MG TABEC PO ONE (10:58)
--- NOTE | 2019-04-26 12:03 | Hospitalist Progress Note ---
Date of Service April 26, 2019 Assessment & Plan (1) Lumbar back pain with radiculopathy affecting left lower extremity: (2) Weakness of left lower extremity: This is a 54-year-old female who has significant past medical history of mild intermittent asthma, anxiety,HLD, L5-S1 intervertebral disc disease who presents to [facility] ED secondary to intractable left lower back pain with radiation to left leg x2 weeks. MRI Lumbar Spine 04/18:interval progression of L5-S1 central/left subarticular disc extrusion, which effaces the left lateral recess and impinges the transversing left S1 nerve root Ortho Spine Dr. Valentin consulted - appreciate input s/p Lumber decompression surgery POD # 2 recovering well post op has minimum pain at back ( only at the incision site ) able to walk with walker concerned about not having bowel movement post op ordered for bowel regimen appreciate input from [facility] plan for discharge home tomorrow (3) Asthma: no acute exacerbation continue prn albuterol (4) Depression with anxiety: continue with trazodone and wellbutrin ordered for PRN Xanax for anxiety attack (5) DVT prophylaxis: SCD/TEDS Follow up: possible discharge home tomorrow pt will cont out pt Physical therapy At [facility] will need post op follow up with [facility] Dr Valentin PCP Dr. Ford upon discharge Subjective back pain has resolved , was able to walk on hallway with walker still has numbness of left foot , which has been improving no fever or chills concerned about not having bowel movement yet ordered for bowel regimen no complain of abdominal pain , no nausea or vomiting Physical Exam Constitutional: WD/WN, vitals as above no acute distress Eyes: + anicteric sclerae ENMT: external ear and nose normal, oropharynx normal Neck: trachea midline, no thyromegaly Respiratory: normal respiratory effort, lungs clear to auscultation Cardiovascular: RRR, no murmur, no edema Gastrointestinal (Abdomen): normal bowel sounds, soft, nontender, no hepatosplenomegaly Musculoskeletal: Spine: + limited thoraco-lumbar ROM (due to severe back pain ) Skin: no rashes, warm and dry Neurologic: PERRL, EOMI, accommodation nl, no face palsy, no dysarthria Psychiatric: A+Ox3, euthymic affect Orientation: alert and oriented x 3 Affect: + anxious affect Results & Data Vital Signs (Past 12 Hours) Vital Signs Temp Pulse Resp BP Pulse Ox 04/26/19 07:11 36.5 C 56 L 18 108/69 99
[2019-04-26] MEDS ORDERED: POLYETHYLENE (MIRALAX) 17 GM PACK PO PRN (12:17)
[2019-04-26] MEDS ORDERED: POLYETHYLENE (MIRALAX) 17 GM PACK PO SCH (13:00)
[2019-04-26] MEDS ORDERED: BISACODYL 10 MG SUPP PR STA (18:37)
[2019-04-26] MEDS: MONTELUKAST SODIUM 10 MG TABLET PO SCH (21:27)
[2019-04-26] MEDS: POLYETHYLENE (MIRALAX) 17 GM PACK PO PRN (23:59)
[2019-04-27] MEDS: ACETAMINOPHEN 325 MG TAB PO PRN (01:17)
[2019-04-27] MEDS: TRAZODONE HCL 100 MG TAB PO SCH (01:17)
[2019-04-27] MEDS: POLYETHYLENE (MIRALAX) 17 GM PACK PO PRN (06:02)
[2019-04-27] MEDS: PANTOprazole 40 MG TAB PO SCH (08:55)
[2019-04-27] MEDS: LORATADINE 10 MG TAB PO SCH (08:55)
[2019-04-27] MEDS: BuPROPion SR 150 MG TABCR PO SCH (08:55)
--- NOTE | 2019-04-27 10:15 | Discharge Summary ---
Date of Service April 27, 2019 Admission HPI Per Admitting Provider This is a 54-year-old female who has significant past medical history of mild intermittent asthma, anxiety,HLD, L5-S1 intervertebral disc disease who presents to [facility] ED secondary to intractable left lower back pain with radiation to left leg x2 weeks. In 2017 patient had an initial event after fall over dog which caused significant left leg and left low back pain for approximately 3 months. Patient states that secondary to L5-S1 disc effacement. It was treated conservatively with narcotic and physical therapy. She has residual left-sided weakness. She states after participating in therapy she feels she got her left leg back to 80% strength. She has been doing well until approximately 2 weeks ago when she bent over and went to stand back up she developed excruciating left-sided low back pain that radiated down left leg. Over the past 2 weeks pain has waxed and waned. She feels she has increased weakness to the left lower extremity. Denies numbness and tingling to left lower extremity or any right lower extremely symptoms. Over the past 3 to 4 days she has had significant worsening of pain and progression of weakness. She woke up at 4 AM this morning unable to get out of bed in excruciating pain; therefore, EMS was called. She denies any loss of bowel or bladder. She denies fever, chills, sweats, lightheadedness, dizziness, chest pain, shortness of breath, nausea, vomiting, abdominal pain. She has been taking [id number] Tylenol without significant relief as well as medical marijuana. She states back in 2016 she stopped narcotics cold turkey because it made her not feel well and she prefers to not take medications. Patient was seen and examined in outpatient setting 04/17/[address] Ford. She underwent MRI of the lumbar spine on 04/18 which revealed interval progression of L5-S1 central/left subarticular disc extrusion, which effaces the left lateral recess and impinges the transversing left S1 nerve root. She was to participate in PT today. In ED patient had CBC and ESR which was unrevealing. She had IV morphine 6 mg, 150 mcg of fentanyl, 10 mg dexamethasone, 0.5 mg Dilaudid and 30 mg of IV ketorolac. At rest her pain is approximately 5/10 and still with inability to walk secondary to pain. Principal Diagnosis BACK PAIN WITH RADICULOPATHY S/P L5-S1 LUMBER DECOMPRESSION SURGERY Discharge Data Allergies Allergy/AdvReac Type Severity Reaction Status Date / Time Sulfa (Sulfonamide Allergy Intermediate Skin Verified 12/20/16 17:06 Antibiotics) reddens sulfamethoxazole Allergy Redness of Unverified 04/22/19 08:08 [From Bactrim] Skin trimethoprim [From Bactrim] Allergy Redness of Unverified 04/22/19 08:08 Skin Consultations 04/22/19 10:21 ED Decision to Admit Stat 04/22/19 11:02 Consult Orthopedic Surgery Routine 04/22/19 12:54 Consult Case Management - Discharge Planning Routine Procedures Performed Operation Date: 04/24/19 13:45 Actual Procedures p Lumbar laminotomy L5-S1 the left with removal of herniated free fragment(Left) - Manjeet Valentin, Ordered Studies 04/24/19 13:45 FL fluoroscopy <1hr Routine FL spine 1V any level Routine Hospital Course (1) Lumbar back pain with radiculopathy affecting left lower extremity: (2) Weakness of left lower extremity: This is a 54-year-old female who has significant past medical history of mild intermittent asthma, anxiety,HLD, L5-S1 intervertebral disc disease who presents to [facility] ED secondary to intractable left lower back pain with radiation to left leg x2 weeks. MRI Lumbar Spine /:interval progression of L5-S1 central/left subarticular disc extrusion, which effaces the left lateral recess and impinges the transversing left S1 nerve root Ortho Spine Dr. Valentin consulted - appreciate input s/p Lumber decompression surgery POD # 3 recovering well post op stable to be discharged home today Spinal Ortho follow up with Dr Valentin in 2 weeks (3) Asthma: no acute exacerbation continue prn albuterol (4) Depression with anxiety: continue with trazodone and wellbutrin ordered for PRN Xanax for anxiety attack (5) DVT prophylaxis: SCD/TEDS Follow up: stable to be discharged home today pt will cont out pt Physical therapy At [facility] follow up with Spinal Orthopedics Dr Valentin in 2 weeks Hospital follow up with Dr. Ford scheduled on Saturday04/30/19 @ 11:05 AM Total Time Total Time Spent Total Time Spent (In Minutes): approx 35 mins Total Time Includes: Examination of the Patient, Discharge Planning, Medication Reconciliation and Communication With Other Providers Discharge Plan Discharge Items Patient Disposition: Home - Self-Care Reason For Visit: L5 S1 NERVE IMPINGEMENT Discharge Diagnosis: BACK PAIN WITH RADICULOPATHY S/P L5-S1 LUMBER DECOMPRESSION SURGERY Activity: Per Instructions section Lifting: No more than 5 pounds Lifting Comment: do not lift /bend for 2 weeks , or till seen by spinal orthopedics Doctor Non-emergency contact: Primary Care Provider Call non-emergency contact if: you have any medication questions Follow-up/Referrals: Manjeet Valentin DO [Surgeon] - 05/06/19 10:30 am (DR VALENTIN'S OFFICE IS AT [address] [place] [address] IT IS THE [facility] AT [address] [place] [address] ) Nika Ford DO [Primary Care Provider] - 04/30/19 11:05 am Diet: Regular Addtl Attending Provider Instructions: HOSPITAL FOLLOW UP WITH DR FORD ON Saturday04/30/19 @ 11:05 AM SPINAL ORTHOPEDICS FOLLOW UP WITH DR VALENTIN ON Saturday05/06/2019 @ 10:30 AM Addtl Airplane Pilot Chief Provider Instructions: ACTIVITY RECOMMENDATIONS: SELF CARE INSTRUCTIONS AFTER A LAMINECTOMY 1. No prolonged sitting (less than 30 minutes for the first 3 weeks after s urgery). 2. No bending, lifting more than 5 pounds, or twisting (roll like a log when turning in bed). 3. You may shower 3 days after surgery if no drainage from wound. Thoroughly dry wound. Do not soak in the tub. 4. Please walk as much as you can for exercise. Gradually increase the distance that you walk as your endurance increases. 5. You may drive in 7-10 days if you are comfortable and no longer requiring pain medications. SPECIAL CARE INSTRUCTIONS: VERY IMPORTANT TO READ AND REVIEW A. Your surgical incision has been closed with a cosmetic suture under the skin that will dissolve in about 6 weeks. In 14 days, you can use a pair of clean scissors and cut the suture that is left outside of the skin at the ends of your incision. B. Complications are uncommon, but please contact us if you have any signs or symptoms of: 1. wound infection (fever higher than 102.5 degrees F, redness, separation of wound, drainage, or increasing pain from the incision) 2. blood clots in legs (pain, swelling, redness and warmth in legs) 3. urinary tract infection (fever higher than 102.5 degrees, burning upon urination or increased frequency of urination) 4. nerve problems (inability to walk on your toes or heels, numbness, loss of bowel or bladder control) 5. any other symptoms that concern you. C. Please call the office at if you have any concerns or questions about your operation or recovery. MANAGING PAIN AFTER SPINAL SURGERY 1. Narcotic medication is intended for short-term use and will be provided for surgical pain. Surgical pain usually lasts for a period of 4-6 weeks. Narcotic medication includes Percocet, Vicodin, Darvocet, Tylenol #3 or Lortab. 2. Longer-term pain is more appropriately treated with non-narcotic medication such as Tylenol ES. 3. Muscle spasm is not appropriately treated with narcotics. Muscle relaxers such as Soma, Flexeril or Skelaxin can be used along with Tylenol ES. 4. Remember that we all live with some "aches and pains". This is not unusual or uncommon after an injury or as we get older. 5. We will provide appropriate medication within the normal guidelines of their prescribed use. We will also be very cautious and aware of potential abuse and extended duration of patients' medication needs. 6. Please allow 2-3 days to process refills. Prescriptions will not be mailed but must be picked up at the office. FOLLOW UP VISIT: Keep your scheduled follow-up appointment. Any questions, please call the office at . Pending Studies at Discharge: No Stand-Alone Forms: My [facility] [employer], Work/School Release (Inpt), Smoking Cessation Medications and DC Order Prescriptions: Continued bupropion HCl [Wellbutrin SR] 150 mg Tablet Sustained-Release 12 Hr 150 mg PO DAILY RF: 0 prednisone 20 mg tablet 40 mg PO DIRECTED RF: 0 trazodone 100 mg Tablet 100 mg PO HS RF: 0 montelukast [Singulair] 10 mg Tablet 10 mg PO PM RF: 0 loratadine [Claritin] 10 mg Tablet 10 mg PO DAILY RF: 0 Premarin 0.625 mg/gram Cream 0.625 mg VAGINAL 2XWK RF: 0 Discharge Orders: Discharge Order (Routine); Ordered 04/27/19 Ordered By: Thi Mariee Admission Data Admit Date/Time: 04/23/19 15:23 Attending Provider: Thi Mariee Admit Provider: Elizabeth Valero Primary Care Provider: Nika Ford Other Providers: Elizabeth Valero ; Manjeet Valentin Other Interventions: Discharge Summary Assessment (RN) Last Done: 04/27/19 09:56 DC Date/Time DO NOT enter until pt leaves facility: 04/27/19 11:10
== END 2019-04-27 11:10 | disposition home or self-care (01) | DRG 519 ==
LOC: ED 07:48 → 3N 07:48 → SUATTDRO 11:02 → 3N 12:30